=== PATIENT | female | born 1980 | race Two or more races ===

== ENCOUNTER → 2020-09-12 09:38 | Outpatient (BNVA) | payer OTHER, SELFPAY | PROVIDERS: Visit Provider Physician Assistant ==

== ENCOUNTER → 2020-10-03 08:10 | Outpatient (BNVA) | payer OTHER, SELFPAY | PROVIDERS: PCP Internal Medicine; Visit Provider Surgery ==

== ENCOUNTER 2020-10-06 09:13 | Outpatient (REF) | payer OTHER, SELFPAY ==
--- NOTE | ~2020-10-06 | XR_ITS ---
EXAMINATION: XR CHEST CLINICAL INFORMATION: Morbid obesity due to excess calories. COMPARISON: None TECHNIQUE: 2 views of the chest were obtained. FINDINGS: The lungs are well expanded. There is no focal consolidation, edema, or effusion. No pneumothorax. The cardiomediastinal silhouette is within normal limits. No acute osseous abnormality. XR/XR chest 2V IMPRESSION: Clear lungs.
--- NOTE | 2020-10-06 09:48 | ECG_ITS ---
Test Reason : OBESITY Blood Pressure : / mmHG Vent. Rate : 088 BPM Atrial Rate : 088 BPM P-R Int : 180 ms QRS Dur : 078 ms QT Int : 376 ms P-R-T Axes : 067 050 032 degrees QTc Int : 454 ms Normal sinus rhythm Normal ECG No previous ECGs available Referred By: Dorian Pagan Electronically Signed By:Reagan Greenfield
[2020-10-06 09:53] LABS: MANUAL DIFF FLAG NO
[2020-10-06 10:03] LABS: Basophils Absolute Auto 0.1 X10*3/uL (0.0-0.2); Basophils Percent Auto 0.5 % (0-2); Eosinophils Absolute Auto 0.2 X10*3/uL (0.0-0.4); Hematocrit 40.6 % (37-47); Imm Gran Abs Auto 0.08 X10*3/uL (0.00-0.03); Imm Gran Pct Auto 0.9 % (0.0-0.4); Lymphocytes Absolute Auto 2.2 X10*3/uL (1.2-4.9); Lymphocytes Percent Auto 23.5 % (20-40); Mean Corpuscular Hemoglobin 27.5 pg (27.0-33.0); Monocytes Absolute Auto 0.6 X10*3/uL (0.1-1.2); Monocytes Percent Auto 6.3 % (2-11); Neutrophils Absolute Auto 6.3 X10*3/uL (2.0-8.3); Neutrophils Percent Auto 66.8 % (45-73); Platelet Count 280 X10*3/uL (160-400); Red Blood Count 4.72 X10*6/uL (4.20-5.50); Red Cell Distribution Width 13.5 % (11.0-16.0); White Blood Count 9.4 X10*3/uL (4.8-10.8)
[2020-10-06 10:23] LABS: Alanine Aminotransferase 55 U/L (0-31); Albumin Level 4.5 g/dL (3.5-5.0); Alkaline Phosphatase 137 U/L (39-117); Anion Gap 16 (12-20); Aspartate Amino Transferase 67 U/L (5-31); Bilirubin Total 0.5 mg/dL (0.0-1.0); Blood Urea Nitrogen 14 mg/dL (9-16); C Reactive Protein 4.67 mg/dL (< or = 0.50); Calcium 9.3 mg/dL (8.4-10.2); Carbon Dioxide 29 mmol/L (22-29); Chloride 99 mmol/L (96-108); Cholesterol 179 mg/dL; Estimated Glomerular Filt Rate > 60; Glucose Random 134 mg/dL (60-115); HDL Cholesterol 40 mg/dL; LDL Cholesterol Calculated 113 mg/dl; Potassium 4.2 mmol/L (3.3-5.1); Sodium 140 mmol/L (135-145); Total Protein 8.3 g/dL (6.5-8.0); Triglycerides 134 mg/dL
[2020-10-06 10:55] LABS: Estimated Average Glucose 183 mg/dL
[2020-10-06 10:58] LABS: TSH reflex Free T4 1.84 uIU/mL (0.32-4.0); Vitamin D 25-OH Total 26.2 ng/mL (>30)
[2020-10-06 11:23] LABS: Folate > 20.0 ng/mL (> or = 4.0); Vitamin B12 377 pg/mL (200-900)
[2020-10-06 11:29] LABS: Ferritin 147 ng/mL (10-250)
[2020-10-07 07:02] LABS: Insulin Level Total 32.1 uIU/mL
[2020-10-07 18:21] LABS: Calcium (PTHI) 9.3 mg/dL (8.6-10.2); PTHI 38 pg/mL (14-64)
[2020-10-09 02:06] LABS: Zinc 82 mcg/dL (60-130)
[2020-10-10 06:51] LABS: Vitamin B1 8 nmol/L (8-30)
[2020-10-10 12:21] LABS: Vitamin A 55 mcg/dL (38-98)
== END 2020-10-06 09:14 | disposition home or self-care (01) ==
LOC: HO.LAB 09:13
PROVIDERS: Visit Provider Surgery
DX: E66.01 Morbid (severe) obesity due to excess calories (principal); I10 Essential (primary) hypertension; E11.9 Type 2 diabetes mellitus without complications
CPT/HCPCS: 36415; 71046; 80053; 80061; 82306; 82607; 82728; 82746; 83036; 83525; 83970; 84425; 84443; 84590; 84630; 85025; 86140; 93005

== ENCOUNTER 2020-10-07 08:13 | Outpatient (REF) | payer OTHER, SELFPAY ==
[2020-10-08 13:31] LABS: H Pylori Breath Test DETECTED (NOT DETECTED)
== END 2020-10-07 08:14 | disposition home or self-care (01) ==
LOC: HO.LNP 08:13
PROVIDERS: Visit Provider Physician Assistant
DX: E66.01 Morbid (severe) obesity due to excess calories (principal); I10 Essential (primary) hypertension
CPT/HCPCS: 83013; 99211

== ENCOUNTER → 2020-10-17 12:36 | Outpatient (BNVA) | payer OTHER, SELFPAY | PROVIDERS: Visit Provider Physician Assistant ==

== ENCOUNTER 2020-10-19 09:15 | Outpatient (REF) | payer OTHER, SELFPAY ==
--- NOTE | ~2020-10-19 | US_ITS ---
EXAMINATION: US COMPLETE ABDOMEN WITH LIVER ELASTOGRAPHY CLINICAL INFORMATION: Morbid to severe obesity due to excess calories. COMPARISON: None. TECHNIQUE: Real-time imaging of the abdominal viscera. Noninvasive ultrasound liver fibrosis assessment is performed using Kam ElastPQ point quantification shear wave elastography (pSWE) with a C5-2 MHz transducer. Multiple elastography samples are obtained. FINDINGS: PANCREAS: Normal. The visualized pancreatic head and body are normal in appearance. The remainder of the pancreas is obscured from visualization by the overlying bowel gas. ABDOMINAL AORTA: The proximal, middle, and distal aortic segments are normal in caliber. INFERIOR VENA CAVA: Visualized portions are normal. LIVER: The liver demonstrates normal size, contour and increased echogenicity. No focal lesion or intrahepatic biliary duct dilatation. The right lobe measures 19.2 cm in length. The left lobe measures 13.1 cm in length. Portal flow is hepatopedal. Shear wave liver elastography median stiffness is 1.67 m/s (reference: normal median stiffness is 1.3 m/s or less). IQR/median stiffness to assess sampling precision is 0.10 (reference: good quality data set is IQR/median stiffness of 0.15 or less). GALLBLADDER: Normal. The gallbladder is physiologically distended without evidence of stones, sludge, polyps, wall thickening or pericholecystic fluid. COMMON BILE DUCT: Normal in caliber measuring 0.57 cm in diameter. RIGHT KIDNEY: Normal. No hydronephrosis. No renal calculi or focal parenchymal lesions. The kidney measures 11.4 cm in maximum dimension. LEFT KIDNEY: Normal. No hydronephrosis. No renal calculi or focal parenchymal lesions. The kidney measures 10.8 cm in maximum dimension. SPLEEN: Normal. The spleen measures 9.8 cm in maximum dimension. FREE FLUID: None. US/US abdomen comp w elastography IMPRESSION: 1. Hepatic steatosis without focal lesion. Rest of the abdominal ultrasound is unremarkable. 2. Liver elastography: Median stiffness 1.67 m/s. cACLD (ruled out) REFERENCE: Society of Radiologists in Ultrasound Liver Stiffness Thresholds (2019): LIVER STIFFNESS THRESHOLDS: *Liver Stiffness equal or less than 1.3 m/s: High probability of being normal. *Liver Stiffness less than 1.7 m/s: In the absence of other known clinical signs, rules out compensated advanced chronic liver disease. *Liver Stiffness 1.7-2.1 m/s: Suggestive of compensated advanced chronic liver disease but need further test for confirmation. *Liver Stiffness over 2.1 m/s: Rules in compensated advanced chronic liver disease. *Liver Stiffness over 2.4 m/s: Suggestive of clinically significant portal hypertension. QUALITY OF DATA SET: *IQR/Median value equal or less than 0.15 implies a quality data set. *IQR/Median value over 0.15 implies a poor quality data set. SIGNIFICANT CHANGE FROM PRIOR EXAM: Significant change if liver stiffness measurement is 10% or greater from prior exam. OTHER CONSIDERATIONS: The stage of liver fibrosis may be overestimated in the setting of acute hepatitis, liver inflammation, elevated liver function tests, hepatic vascular congestion, obstructive cholestasis, non-fasting state, and infiltrative diseases such as amyloidosis and lymphoma. In some patients with NAFLD, the liver stiffness thresholds for compensated advanced chronic liver disease may be lower. In causes other than viral hepatitis and NAFLD, liver stiffness thresholds are not well established.
--- NOTE | ~2020-10-19 | FL_ITS ---
EXAMINATION: XR GI SERIES CLINICAL INFORMATION: Orbit obesity. COMPARISON: None. TECHNIQUE: Routine upper GI air contrast study was performed. FINDINGS: Falling oral administration of thick barium and effervescent granules in upright view, there is normal propagation of bolus from the oral cavity through the pharynx and esophagus and into the stomach without any evidence of obstruction, narrowing or stricture. The course, caliber and peristalsis of the stomach and the duodenal bulb are normal. There is mild gastroesophageal reflux seen in the supine position. No evidence of hiatal hernia. Incidental note is made of previous cholecystectomy. FLUOROSCOPY TIME: 1.4 minutes. DOSE AREA PRODUCT: 60.201 uGy-m2 (microgray-meter squared). FL/FL upper GI series IMPRESSION: Mild gastroesophageal reflux without hiatal hernia.
== END 2020-10-19 09:16 | disposition home or self-care (01) ==
LOC: HO.US 09:15
PROVIDERS: PCP Internal Medicine; Visit Provider Surgery
DX: Z01.818 Encounter for other preprocedural examination (principal); E66.01 Morbid (severe) obesity due to excess calories; K21.9 Gastro-esophageal reflux disease without esophagitis
CPT/HCPCS: 74240; 76705; 76981

== ENCOUNTER 2020-10-20 12:22 | Outpatient (REF) | payer OTHER, SELFPAY ==
[2020-10-20 13:44] LABS: Iron 41 mcg/dL (30-160); Percent Iron Saturation 9 % (15-50); Total Iron Binding Capacity 444 mcg/dL (228-428); Unsaturated Iron Binding 403 ug/dL
== END 2020-10-20 12:23 | disposition home or self-care (01) ==
LOC: HO.LAB 12:22
PROVIDERS: Visit Provider Surgery
DX: E66.01 Morbid (severe) obesity due to excess calories (principal); I10 Essential (primary) hypertension; E11.9 Type 2 diabetes mellitus without complications
CPT/HCPCS: 36415; 83540

== ENCOUNTER → 2020-10-24 10:59 | Outpatient (BNVA) | payer OTHER, SELFPAY | PROVIDERS: Visit Provider Physician Assistant ==

== ENCOUNTER → 2020-10-26 08:25 | Outpatient (BNVA) | payer OTHER, SELFPAY | PROVIDERS: PCP Nurse Practitioner Family; Visit Provider Surgery ==

== ENCOUNTER → 2020-10-31 08:12 | Outpatient (BNVA) | payer OTHER, SELFPAY | PROVIDERS: Visit Provider Dietitian, Registered | DX: E66.01 Morbid (severe) obesity due to excess calories (principal); Z68.41 Body mass index [BMI] 40.0-44.9, adult | CPT/HCPCS: 97802 ==

== ENCOUNTER → 2020-11-07 11:33 | Outpatient (BNVA) | payer OTHER, SELFPAY | PROVIDERS: Referring Provider Nurse Practitioner Family; Visit Provider Physician Assistant ==

== ENCOUNTER 2020-11-15 08:58 | Outpatient (REF) | payer OTHER, SELFPAY ==
[2020-11-16 14:47] LABS: H Pylori Breath Test NOT DETECTED (NOT DETECTED)
== END 2020-11-15 08:59 | disposition home or self-care (01) ==
LOC: HO.LNP 08:58
PROVIDERS: Referring Provider Nurse Practitioner Family; Visit Provider Surgery
DX: A04.8 Other specified bacterial intestinal infections (principal); E66.01 Morbid (severe) obesity due to excess calories; I10 Essential (primary) hypertension
CPT/HCPCS: 83013; 99211

== ENCOUNTER → 2020-11-18 08:15 | Outpatient (BNVA) | payer OTHER, SELFPAY | PROVIDERS: Visit Provider Surgery | DX: E66.01 Morbid (severe) obesity due to excess calories (principal); Z68.41 Body mass index [BMI] 40.0-44.9, adult | CPT/HCPCS: 97803 ==

== ENCOUNTER → 2020-11-22 11:41 | Outpatient (BNVA) | payer OTHER, SELFPAY | PROVIDERS: PCP Nurse Practitioner Family; Visit Provider Physician Assistant ==

== ENCOUNTER → 2020-11-25 14:40 | Outpatient (BNVA) | payer OTHER, SELFPAY | PROVIDERS: PCP Nurse Practitioner Family; Referring Provider Nurse Practitioner Family; Visit Provider Physician Assistant ==

== ENCOUNTER → 2020-11-29 11:45 | Outpatient (BNVA) | payer OTHER, SELFPAY | PROVIDERS: PCP Nurse Practitioner Family; Visit Provider Physician Assistant ==

== ENCOUNTER → 2020-12-06 10:41 | Outpatient (BNVA) | payer OTHER, SELFPAY | PROVIDERS: PCP Nurse Practitioner Family; Visit Provider Physician Assistant ==

== ENCOUNTER → 2020-12-12 07:48 | Outpatient (BNVA) | payer OTHER, SELFPAY | PROVIDERS: PCP Nurse Practitioner Family; Visit Provider Surgery ==

== ENCOUNTER → 2020-12-20 10:19 | Outpatient (BNVA) | payer OTHER, SELFPAY | PROVIDERS: PCP Nurse Practitioner Family; Visit Provider Physician Assistant ==

== ENCOUNTER → 2020-12-27 12:01 | Outpatient (BNVA) | payer OTHER, SELFPAY | PROVIDERS: PCP Nurse Practitioner Family; Visit Provider Physician Assistant ==

== ENCOUNTER → 2021-01-02 10:35 | Outpatient (BNVA) | payer OTHER, SELFPAY | PROVIDERS: PCP Nurse Practitioner Family; Visit Provider Physician Assistant ==

== ENCOUNTER → 2021-01-11 07:24 | Outpatient (BNVA) | payer OTHER, SELFPAY | PROVIDERS: PCP Nurse Practitioner Family; Visit Provider Surgery ==

== ENCOUNTER → 2021-01-17 10:14 | Outpatient (BNVA) | payer OTHER, SELFPAY | PROVIDERS: PCP Nurse Practitioner Family; Referring Provider Nurse Practitioner Family; Visit Provider Physician Assistant ==

== ENCOUNTER → 2021-01-20 08:56 | Outpatient (BNVA) | payer OTHER, SELFPAY | PROVIDERS: PCP Nurse Practitioner Family; Referring Provider Nurse Practitioner Family; Visit Provider Physician Assistant ==

== ENCOUNTER 2021-01-26 13:01 | Inpatient (IN) | payer MEDICAID, SELFPAY ==
[2021-01-17 10:40] LABS: MANUAL DIFF FLAG NO
[2021-01-17 10:51] LABS: Basophils Percent Auto 0.3 % (0-2); Eosinophils Absolute Auto 0.2 X10*3/uL (0.0-0.4); Hematocrit 37.4 % (37-47); Hemoglobin 11.7 g/dl (12.0-16.0); Imm Gran Abs Auto 0.04 X10*3/uL (0.00-0.03); Imm Gran Pct Auto 0.4 % (0.0-0.4); Lymphocytes Absolute Auto 2.4 X10*3/uL (1.2-4.9); Lymphocytes Percent Auto 23.4 % (20-40); Mean Corpuscular HGB Conc 31.3 g/dl (31.0-35.0); Mean Corpuscular Hemoglobin 26.4 pg (27.0-33.0); Mean Corpuscular Volume 84.4 fL (80-98); Mean Platelet Volume 13.2 fL (9.4-12.3); Monocytes Absolute Auto 0.6 X10*3/uL (0.1-1.2); Monocytes Percent Auto 5.6 % (2-11); Neutrophils Percent Auto 68.3 % (45-73); Platelet Count 252 X10*3/uL (160-400); Red Blood Count 4.43 X10*6/uL (4.20-5.50); Red Cell Distribution Width 13.2 % (11.0-16.0); White Blood Count 10.2 X10*3/uL (4.8-10.8)
[2021-01-17 10:56] LABS: Estimated Average Glucose 114 mg/dL; Hemoglobin A1c % 5.6 %
[2021-01-17 11:01] LABS: INTERNATIONAL NORM RATIO 1.1 (0.9-1.1); Prothrombin Time 12.9 SEC (9.9-13.0)
[2021-01-17 11:04] LABS: Partial Thromboplastin Time 35.4 SEC (24.1-38.0)
[2021-01-17 11:14] LABS: Alanine Aminotransferase 16 U/L (0-31); Albumin Level 4.1 g/dL (3.5-5.0); Alkaline Phosphatase 118 U/L (39-117); Anion Gap 12 (12-20); Aspartate Amino Transferase 14 U/L (5-31); Bilirubin Total 0.4 mg/dL (0.0-1.0); Blood Urea Nitrogen 18 mg/dL (9-16); C Reactive Protein 3.26 mg/dL (< or = 0.50); Calcium 9.3 mg/dL (8.4-10.2); Carbon Dioxide 29 mmol/L (22-29); Chloride 103 mmol/L (96-108); Cholesterol 142 mg/dL; Estimated Glomerular Filt Rate > 60; Glucose Random 96 mg/dL (60-115); HDL Cholesterol 35 mg/dL; LDL Cholesterol Calculated 80 mg/dl; Potassium 4.3 mmol/L (3.3-5.1); Sodium 140 mmol/L (135-145); Total Protein 7.3 g/dL (6.5-8.0); Triglycerides 135 mg/dL
[2021-01-17 11:24] LABS: TSH reflex Free T4 2.37 uIU/mL (0.32-4.0)
[2021-01-17 13:46] VITALS: BMI 37.7
[2021-01-18 11:17] LABS: Insulin Level Total 17.6 uIU/mL
--- NOTE | 2021-01-25 08:46 | P.CONAN_ITS ---
Documented by User: Dinah Wynne 01/25/21 08:47 HPI - Anesthesia Eval Consult details Narrative: 41yo F for Gastrectomy Sleeve, EGD, Poss Diaphragmatic Hernia, Poss Ventral Hernia, Poss open PMFSH Active Problems Active Problems: All Active Problems (Updated 01/17/21 @ 13:48 by Richelle Delaney) Vitamin D deficiency (Acute) Vitamin B12 deficiency (Acute) H pylori ulcer (Acute) Adjustment disorder, unspecified (Acute) Obesity (Acute) BMI 38.0-38.9,adult (Acute) BMI 37.0-37.9, adult (Acute) Lower extremity edema (Acute) Back pain (Acute) Insomnia (Acute) Non-insulin dependent diabetes mellitus (Acute) Hypertension (Acute) Morbid obesity (Acute) Past Medical History Medical History (Updated 01/17/21 @ 13:48 by Richelle Delaney) Back pain COVID-19 vaccine administered Hypertension Insomnia Lower extremity edema Morbid obesity Non-insulin dependent diabetes mellitus Family History Family History Mother Hypertension Diabetes Father Diabetes Hypertension Gout attack Brother Gout attack Hypertension Son No problems noted. Surgical History Surgical History History of carpal tunnel release History of tonsillectomy and adenoidectomy Hx of cholecystectomy Social History Social History Household Members Other:: father Are you a primary care management specialist to a significant other at home: No Do you presently have visiting nurse or other home services: No Alcohol intake: former Patient Tobacco Use Status: Never used Tobacco Meds Allergies Allergy/AdvReac Type Severity Reaction Status Date / Time No Known Allergies Allergy Verified 01/26/21 13:42 Home Medications Medication Instructions Recorded Confirmed Last Taken Type sitagliptin 50 mg-metformin 1,000 1 tab PO BID 09/12/20 01/17/21 Unknown History mg tablet trazodone 50 mg tablet 25 mg PO DAILY PRN 09/12/20 01/17/21 Unknown History valsartan 80 mg tablet 80 mg PO DAILY 09/12/20 01/17/21 Unknown History Exam Exam Date and Time: January 25, 2021 0846 Height,Weight and Vital Signs: Height 5 ft 4.5 in Weight 101.151 kg Pertinent Lab Results Pertinent Lab Results: Laboratory Tests 01/17/21 01/17/21 01/17/21 10:00 10:00 10:00 WBC 10.2 RBC 4.43 Hgb 11.7 L Hct 37.4 MCV 84.4 MCH 26.4 L MCHC 31.3 RDW 13.2 Plt Count 252 MPV 13.2 H Immature Gran % (Auto) 0.4 Neut % (Auto) 68.3 Lymph % (Auto) 23.4 Mclean % (Auto) 5.6 Eos % (Auto) 2.0 Baso % (Auto) 0.3 Lymph # (Auto) 2.4 Mclean # (Auto) 0.6 Eos # (Auto) 0.2 Baso # (Auto) 0.0 Abs Immat Gran (auto) 0.04 H Absolute Neuts (auto) 7.0 Absolute Nucleated RBC 0.000 Nucleated RBC % (auto) 0.0 PT 12.9 INR 1.1 APTT 35.4 Sodium 140 Potassium 4.3 Chloride 103 Carbon Dioxide 29 Anion Gap 12 BUN 18 H Creatinine 0.79 Estim Creat Clear Calc TNP Estimated GFR > 60 Random Glucose 96 Estimat Average Glucose Hemoglobin A1c % Total Insulin Calcium 9.3 Total Bilirubin 0.4 AST 14 D ALT 16 Alkaline Phosphatase 118 H C-Reactive Protein 3.26 H Total Protein 7.3 Albumin 4.1 Triglycerides 135 Cholesterol 142 D LDL Cholesterol, Calc 80 HDL Cholesterol 35 TSH 2.37 Blood Type Antibody Screen 01/17/21 01/17/21 01/17/21 10:00 10:00 10:00 WBC RBC Hgb Hct MCV MCH MCHC RDW Plt Count MPV Immature Gran % (Auto) Neut % (Auto) Lymph % (Auto) Mclean % (Auto) Eos % (Auto) Baso % (Auto) Lymph # (Auto) Mclean # (Auto) Eos # (Auto) Baso # (Auto) Abs Immat Gran (auto) Absolute Neuts (auto) Absolute Nucleated RBC Nucleated RBC % (auto) PT INR APTT Sodium Potassium Chloride Carbon Dioxide Anion Gap BUN Creatinine Estim Creat Clear Calc Estimated GFR Random Glucose Estimat Average Glucose 114 Hemoglobin A1c % 5.6 Total Insulin 17.6 Calcium Total Bilirubin AST ALT Alkaline Phosphatase C-Reactive Protein Total Protein Albumin Triglycerides Cholesterol LDL Cholesterol, Calc HDL Cholesterol TSH Blood Type B Positive Antibody Screen NEGATIVE Narrative Narrative: EKG 10/2020 Vent. Rate : 088 BPM Atrial Rate : 088 BPM P-R Int : 180 ms QRS Dur : 078 ms QT Int : 376 ms P-R-T Axes : 067 050 032 degrees QTc Int : 454 ms Normal sinus rhythm Normal ECG No previous ECGs available Assessment and Plan Assessment Anesthesia Assessment: Chart Reviewed Documented by User: Cookie Anti 01/26/21 13:56 PMF Past Medical History Medical History (Updated 01/17/21 @ 13:48 by Richelle Delaney) Back pain COVID-19 vaccine administered Hypertension Insomnia Lower extremity edema Morbid obesity Non-insulin dependent diabetes mellitus Family History Family History Mother Hypertension Diabetes Father Diabetes Hypertension Gout attack Brother Gout attack Hypertension Son No problems noted. Surgical History Surgical History History of carpal tunnel release History of tonsillectomy and adenoidectomy Hx of cholecystectomy Social History Social History Household Members Other:: father Are you a primary care management specialist to a significant other at home: No Do you presently have visiting nurse or other home services: No Alcohol intake: former Patient Tobacco Use Status: Never used Tobacco Meds Allergies Allergy/AdvReac Type Severity Reaction Status Date / Time No Known Allergies Allergy Verified 01/26/21 13:42 Home Medications Medication Instructions Recorded Confirmed Last Taken Type sitagliptin 50 mg-metformin 1,000 1 tab PO BID 09/12/20 01/17/21 Unknown History mg tablet trazodone 50 mg tablet 25 mg PO DAILY PRN 09/12/20 01/17/21 Unknown History valsartan 80 mg tablet 80 mg PO DAILY 09/12/20 01/17/21 Unknown History Exam Airway Mallampati Class: II TM Dist: >3cm Neck ROM: Full Loose/Missing/Broken Teeth: No Heart: RRR Lungs: CTA Assessment and Plan Assessment Anesthesia Assessment: Anesthesia Plan Discussed and Chart Reviewed Final Anesthetic Review NPO: Yes ASA Class: II Final Preanesthetic Review: Meds/Allgs Chart Reviewed, Consent Obtained/Reviewed and Anes Risks/Benef Reviewed Patient Risk: Low Procedure Risk: Intermediate Anesthetic Plan Anesthetic Plan: GA Disposition: Standard PACU
--- NOTE | 2021-01-25 19:19 | MHC.SHP ---
Pre-Procedural Eval Section A Date of Service: 01/25/21 The patient is an INPATIENT: Yes The History & Physical has been completed within 30 days and I have reviewed it.: Yes Section B Chief Complaint: Obesity Details of Present Illness: Obesity Relevant Family History (Specify if Yes): No Relevant Social History: None Present Medications: see Short Stay Collaborative assessment Medical History: No relevant PMH History of Previous Operations: No relevant previous surgery Allergies: Allergies Allergy/AdvReac Type Severity Reaction Status Date / Time No Known Allergies Allergy Verified 01/11/21 11:16 Review of Systems Sugical H&P ROS: Negative: Constitution, Cardiovascular, Respiratory, Neurological, Psychiatric, Hem-Onc, Allergic/Immunologic, Gastrointestinal, Genitourinary, Musculoskeletal, Integumentary, Endocrine and Eyes/Ears/Nose/Throat Exam Surgical H&P Exam: Normal: HEENT, Normal: Heart, Normal: Lungs, Normal: Extremities, Normal: Abdomen, Normal: Skin and Normal: Neurological Plan Diagnosis/Plan: Unchanged I have reviewed the history and physical and performed a pertinent physical examination on my patient. No changes have occurred unless specified.
[2021-01-26] VITALS (13 sets, daily range): BP systolic 134–163; BP diastolic 81–95; PULSE 62–83; RESP 14–17; TEMP 35.9–36.5; O2SAT 96–100
[2021-01-26 13:42] LABS: UPreg QC Valid YES; Urine Pregnancy NEGATIVE (NEGATIVE)
[2021-01-26 13:51] LABS: COVID-19 Test Negative (Negative)
[2021-01-26] MEDS: Lactated Ringers 1,000 ML 999 ML IV (14:09)
[2021-01-26] MEDS: Lactated Ringers 1,000 ML 100 ML IVCONT (14:10)
--- NOTE | 2021-01-26 14:11 | PC.NURSE ---
Commercial Sales Consultant at bedside during intake. Patient states that she only drank half of her bowel prep (1/2 of the bottle of miralax). She only had one bowel movement since she started her prep and it was brown diarrhea. Dr. Pratt aware. Dr. Pagan aware. No new orders. Okay to proceed with surgery.
--- NOTE | 2021-01-26 15:23 | PM.OP ---
Brief Operative Note Date of Service: 01/26/21 Pre-op diagnosis: Severe obesity with comorbidities (see below) Post-op diagnosis: same Procedure: INITIAL PATIENT BMI ON PRESENTATION AT OUR OFFICE: 44.4 kg/m2 LAST BMI BEFORE SURGERY:37.8 kg/m2 COMORBIDITIES: Hypertension, non-insulin dependent diabetes, back pain, insomnia, GERD, liver steatosis, lower extremity edema The patient participated in an intensive weekly lifestyle intervention and exercise program during which the patient has lost between the initial office visit and the last preoperative visit 43.2lbs, or 16.2% of initial actual body weight. The patient met the BMI-criteria for bariatric surgery based on the BMI on initial presentation. The patient should not be penalized for achieving such weight loss because it is not sustainable long-term without surgical intervention and it was achieved in preparation for bariatric surgery under my direction and based on my published research ([email or web address] and [email or web address]) that a 10% preoperative weight loss improves long-term weight loss after surgery and reduces perioperative complications. Insurance carriers such as [facility] have endorsed my recommendations and have included in their policies criteria to include a 10% preoperative weight loss requirement. PROCEDURE: Esophago-gastroscopy, laparoscopic sleeve gastrectomy and laparoscopic gastropexy INDICATIONS: This is a 41 year-old female who was electively scheduled for laparoscopic, possibly open sleeve gastrectomy. The risks and complications of the procedure were discussed with the patient in advance, particularly the possibility of ; pulmonary embolism; staple line leak; bleeding; GERD; cardiac, pulmonary, or renal complications; as well as long-term problems such as insufficient weight loss, vitamin deficiency, strictures, or ulcers. The patient understood all the risks, and was in agreement to proceed with surgery. DESCRIPTION OF PROCEDURE: After informed consent was obtained from the patient, the patient was given preoperative antibiotics, and was transferred to the operating room. After successful induction of general anesthesia, pneumatic compressive devices were placed on both lower extremities. An upper endoscopy was performed next. The oropharynx and esophagus appeared to be within normal limits. There was a diaphragmatic hernia present of moderate size consistent with the findings of the preoperative upper GI. The stomach was entered. Then after all fluid and air were suctioned and the stomach was fully decompressed, the scope was withdrawn and secured in the mid esophagus. The patient was then prepped and draped in the usual sterile manner, and abdominal access was established at the right upper quadrant with the Rona technique. A 12 mm blunt port was inserted, and the abdomen was insufflated with CO2 to a pressure of 15 mmHg. Under direct visualization, additional ports were placed, specifically two 5 mm Versi-step ports to the left upper quadrant, and a 5 mm Versi-Step port to the right upper quadrant. 1% lidocaine plain was used to infiltrate all port sites as well as all fascia defects. Using the EndoClose suture passer device, I placed a #1 Polysorb tie across the falciform ligament in order to retract it up against the abdominal wall and prevent injury of the ligament with our instruments during the procedure. Following that, the patient was placed in a steep reverse Trendelenburg position. An additional 5 mm port was placed to the right flank for the Mediflex retractor that was used to retract the left lobe of the liver. The gastro-esophageal fat pad was opened with the ultrasonic device (Thunderbeat, Olympus) and the anterior esophagus and hiatus were exposed. The angle of His was opened with the ultrasonic device the fundus of the stomach from any diaphragmatic and splenic attachments. I then opened the gastrocolic ligament between the transverse colon and the greater curvature of the stomach with the ultrasonic device to enter the lesser sac and facilitate the ligation of the short gastric vessels. I started at a mid-point along the greater curvature and using the Thunderbeat, all short gastric vessels were divided all the way to the angle of His until the left massiel was completely dissected at its entirety. I then divided the gastro-colic ligament distally to a distance of about 3-4 cm proximal to the esophagus. The stomach was then divided transversely with one Endo ROMAINE-45 purple and four ROMAINE-60 articulating orange loads using the AEON stapler and loads. Every effort was made that the gastric sleeve had a tubular shape and an even caliber throughout. Once the sleeve resection was completed, the staple line of the gastric sleeve was reinforced with Hemoclips. The resected stomach was retrieved without difficulty from the Rona port. A gastropexy was then performed in order to prevent postoperative GERD and partial gastric volvulus. Several interrupted 2.0 Surgidac sutures were placed between the sleeve's staple line and the previously divided greater omentum and gastro-colic ligament using the Endo-Stitch device. An upper endoscopy was performed. There was no narrowing at the GE junction. The scope was easily advanced all the way to the pylorus which was clearly visualized. There was no narrowing anywhere and the sleeve's caliber was even throughout. The sleeve's staple line was inspected and there was no evidence of ischemia, bleeding or dehiscence. At that point the gastroscope was withdrawn from the patient?s mouth while we were decompressing the bowel and the stomach from any remaining air. I looked into the lesser sac to see how the sleeve was situating and it was situating well. There was no bleeding from the staple line, spleen, or short gastric vessels. The Mediflex retractor was removed, and the undersurface of the liver was inspected and there was no bleeding. The patient was placed in supine position. I closed the fascial defect of the 12 mm port site with a figure of eight #1 Polysorb suture. Then 100 cc 0.25 % Marcaine plain with 10 mg of Dexamethasone were used to infiltrate the fascial closure as well as all skin incisions. At this point, the abdomen was deflated, all ports were removed under direct vision, and no bleeding was noted from any of the port sites. The skin incisions were irrigated with saline and were closed with 4-0 absorbable monofilament sutures. Steri-Strips and OpSites were used to cover all incisions. The patient was extubated and was transferred in stable condition to the recovery room for further care. I was present and performed all donato parts of the procedure. Jonas Encinas was the assistant director of admissions. There were no residents to assist with this case. Dylon Pagan MD, PhD, FACS Surgeon: Dorian Pagan MD Anesthesia: GETA, local and other (TAP block) Was an Management Trainer used for this Procedure?: No Management Trainer: Joan Encinas Estimated blood loss (mL): 5 IV fluids (mL): 2,400 Urine output (mL): 0 (No Meredith to record) Pathology: other (Stomach) Condition: stable Disposition: PACU
--- NOTE | 2021-01-26 15:27 | PM.PNGS ---
Subjective Subjective Date of Service: 01/27/21 Interval history: Patient has mild incisional pain but was able to ambulate and use the incentive spirometer. Is tolerating phase 1 bariatric diet. Physical Exam Vital Signs: Vital Signs: Last Vital Signs Temp 97.4 F 01/26/21 13:53 Pulse 62 01/26/21 13:53 Resp 16 01/26/21 13:53 BP 134/81 01/26/21 13:53 Pulse Ox 97 01/26/21 13:53 Body Mass Index 37.7 GI: Inspection: Yes normal to inspection, Yes incision (clean, dry and intact) and Yes obesity Extrem: Right lower extremity: normal to inspection (no calf tenderness) Left lower extremity: normal to inspection (no calf tenderness) Progress Note: A&P Assessment and plan (1) Obesity: Status: Acute Assessment and Plan: s/p laparoscopic sleeve gastrectomy and gastropexy Doing well Check am labs. If OK, will discharge home. (2) BMI 37.0-37.9, adult: Status: Acute (3) Non-insulin dependent diabetes mellitus: Status: Acute (4) Hypertension: Status: Acute (5) Insomnia: Status: Acute (6) Back pain: Status: Acute (7) Lower extremity edema: Status: Acute Fall Risk Details Current Medications: Current Medications Generic Name Dose Route Start Last Admin Trade Name Freq PRN Reason Stop Dose Admin Albuterol Sulfate 2.5 mg 01/26/21 13:56 Albuterol Sulfate (0.083%) 2.5 Mg/3 Ml Vial.Neb INHALE ONCE PRN Wheezing Fentanyl 50 mcg 01/26/21 13:56 Fentanyl Citrate/Pf 100 Mcg/2 Ml Vial IVPUSH Q5M PRN Pain, Severe (Pain Scale 7-10) Fentanyl 25 mcg 01/26/21 13:56 Fentanyl Citrate/Pf 100 Mcg/2 Ml Vial IVPUSH Q5M PRN Pain, Moderate (Pain Scale 4-6 Hydromorphone HCl 0.5 mg 01/26/21 13:56 Hydromorphone Hcl 0.5 Mg/0.5 Ml Syringe IVPUSH Q5M PRN Pain, Severe (Pain Scale 7-10) Hydromorphone HCl 0.25 mg 01/26/21 13:56 Hydromorphone Hcl 0.5 Mg/0.5 Ml Syringe IVPUSH Q5M PRN Pain, Severe (Pain Scale 7-10) Lactated Ringer's 1,000 mls @ 100 mls/hr 01/26/21 13:15 01/26/21 14:10 Lr IVCONT 100 mls/hr .Q10H LADY Administration Promethazine HCl 12.5 mg/ 50.5 mls @ 202 mls/hr 01/26/21 13:56 Sodium Chloride IV ONCE PRN Nausea and Vomiting Ondansetron HCl 4 mg 01/26/21 13:56 Ondansetron Hcl 4 Mg/2 Ml Vial IVPUSH ONCE PRN Nausea and Vomiting Oxycodone HCl 10 mg 01/26/21 13:56 Oxycodone Hcl Immed Release 5 Mg Tablet PO ONCE PRN Pain, Severe (Pain Scale 7-10) Oxycodone HCl 5 mg 01/26/21 13:56 Oxycodone Hcl Immed Release 5 Mg Tablet PO ONCE PRN Pain, Severe (Pain Scale 7-10) Time Spent With Patient Time: Total time spent is greater than 50% in coordination of care (as documented) at patient's floor/unit and/or counseling patient: Time with patient: less than 15 minutes Procedures Date of Service Date of Service: 01/27/21 Quality Stroke Does the patient have a stroke diagnosis?: No VTE Prior VTE?: No VTE Risk Level:: Surgical - moderate VTE Device Contraindication: N/A - Device Ordered VTE Drug Contraindication: Treatment Not Indicated
--- NOTE | 2021-01-26 17:39 | P.DS_ITS ---
DS: Providers Provider Date of Service: 01/27/21 Primary care physician: Marylou Martinez MD DS: Diagnosis Discharge Diagnosis (1) Obesity: Status: Acute (2) BMI 37.0-37.9, adult: Status: Acute (3) Non-insulin dependent diabetes mellitus: Status: Acute (4) Hypertension: Status: Acute (5) Insomnia: Status: Acute (6) Back pain: Status: Acute (7) Lower extremity edema: Status: Acute DS: Medications Discharge Medications Home Medications: Home Medications Medication Instructions Recorded Confirmed sitagliptin 50 mg-metformin 1,000 1 tab PO BID 09/12/20 01/26/21 mg tablet trazodone 50 mg tablet 25 mg PO DAILY PRN 09/12/20 01/17/21 valsartan 80 mg tablet 80 mg PO DAILY 09/12/20 01/17/21 Previous Rx's Medication Instructions Recorded ondansetron HCl 4 mg tablet 4 mg PO Q6H #20 tab 01/11/21 pantoprazole 40 mg tablet,delayed 40 mg PO DAILY #30 tab 01/11/21 release sucralfate 100 mg/mL oral 10 ml PO BID #400 ml 01/11/21 suspension DS: Summary Time Spent with Patient Time attestation: ADMITTING DIAGNOSIS: morbid obesity, NIDDM, HTN, insomnia DISCHARGE DIAGNOSIS: same, s/p laparoscopic sleeve gastrectomy and repair diaphragmatic hernia PAST SURGICAL HISTORY: lap chas, T&A, carpal tunnel release PROCEDURE: upper endoscopy, laparoscopic sleeve gastrectomy and gastropexy DISCHARGE SUMMARY: History of Present Illness: The patient is a 41 year-old woman with a BMI of 44.3 kg/m2 and associated co- morbidities as described above. The patient had extensive work-up,lost 44.2 lbs preoperatively and was electively scheduled for laparoscopic, possible open sleeve gastrectomy and gastropexy. Risks and complications of the surgery were discussed with the patient in advance, particularly the possibility of , pulmonary embolism, anastomotic leak, bleeding, bowel injury, GERD, cardiac, renal or pulmonary complications. The patient understood all the risks and was in agreement with the surgical plan. Hospital Course: The patient underwent an uneventful laparoscopic sleeve gastrectomy with gastropexy on the day of admission. Postoperatively, the patient was transferred to the surgical floor. The patient was on IV Acetaminophen and IV dilaudid for pain control. Patient was started on bariatric phase 1 diet POD #0. On postoperative day one, the patient was feeling well without nausea, vomiting, fevers, or tachycardia. The patient had some mild incisional pain. The abdomen was soft. On the morning of postoperative day one, the patient was continued on 1 ounce of water or ice every half hour. During the first day, the patient did fairly well, having some incisional pain, but able to ambulate adequately and to tolerate liquids well. Since the patient is doing well, we decided that the patient was ready to be discharged. The patient was given instructions to follow-up with me next week and to call my office for any fever over 101, persistent abdominal pain, nausea, vomiting, GERD, symptoms of DVT such as calf tenderness, or leg swelling, or pulmonary embolism such as chest pain or shortness of breath. The patient was also instructed to drink 40-60 ounces of liquids per day using the 1-ounce cups. The patient was given prescription for Tylenol for pain, Zofran prn for nausea, and pantoprazole and carafate. The patient was encouraged to ambulate and use the incentive spirometer. The patient was allowed to shower, but no baths, and encouraged to stay active at home. All of these instructions were given to the patient personally. All questions were answered and the patient understood all instructions, the instructions were also given to the patient in print. Total time spent providing and/or coordinating discharge services: 15 Discharge coordination time: Less than 30 minutes Quality: Stroke Does the patient have a stroke diagnosis?: No Physical Exam Vital Signs: Vital Signs: Last Vital Signs Temp 96.8 F 01/26/21 17:30 Pulse 76 01/26/21 17:35 Resp 16 01/26/21 17:35 BP 153/89 H 01/26/21 17:35 Pulse Ox 100 01/26/21 17:35 Body Mass Index 37.7 DS: Data Data Completed and Pending Pending studies at discharge: Pending at discharge 01/26/21 17:07 Surgical [PTH] Routine Labs on day of discharge: Laboratory Results - last 24 hr 01/26/21 01/26/21 13:20 13:20 Urine Test NEGATIVE COVID-19 ([facility]IDE) Negative COVID-19 Clin Com See Note Discharge Plan Discharge Patient Disposition: Home, Self-Care Discharge Diagnosis: Severe obesity and comorbidities Referrals: Marylou Martinez MD [Primary Care Provider] - 1 Week Discharge Medications: Continued valsartan 80 mg tablet 80 mg PO DAILY RF: 0 trazodone 50 mg tablet 25 mg PO DAILY PRN (Reason: Insomnia) RF: 0 pantoprazole 40 mg tablet,delayed release (DR/EC) 40 mg PO DAILY Qty: 30 RF: 2 sucralfate 100 mg/mL suspension 10 ml PO BID Qty: 400 RF: 2 ondansetron HCl [Zofran] 4 mg tablet 4 mg PO Q6H Qty: 20 RF: 0 Held Janumet 50-1,000 mg tablet 1 tab PO BID RF: 0 Hold Instructions: Discuss with Dr Pagan before restarting Discontinued mecobalamin (vitamin B12) 1,000 mcg tablet,disintegrating 1,000 mcg sublingual DAILY Qty: 30 RF: 2 Discharge Orders: Discharge Order (Routine); Ordered 01/27/21 Ordered By: Dorian Pagan Activity on Discharge: As tolerated Activity Restrictions/Additional Instructions: No tub baths, sex or returning to work until discussed at first post op appointment. No exercise, alcohol, tobacco or illegal drug use. Continue to use incentive spirometer hourly while awake. Walk in home for 5- 10 minutes every 2 hours during the first week. Continue phase 1 diet today and start phase 2 diet tomorrow morning. Follow all instructions in the bariatric handbook and call with any questions. The patient's medical history has been reviewed and they are considered low risk for post op DVT and therefore DVT prophylaxis is not considered necessary. Travel after surgery was reviewed. The patient has not disclosed any travel plans during the first 30 days after surgery and they have been advised that within the first 30 days after surgery any bus, plane, train or car travel over 2 hours in duration is contraindicated due to the possibility of developing blood clots from immobility. Any travel, needs to include periods of ambulation of 10 minutes in duration every 2 hours. The patient was instructed to discuss any plans for travel during this period with their bariatric surgeon. Care Plan Goals: weight loss Health Concerns: obesity Plan of Treatment: LSG Assessment: stable POD #1 Discharge Date/Time: 01/27/21 10:15
[2021-01-26] MEDS: Lactated Ringers 1,000 ML 125 ML IVCONT (17:59)
[2021-01-26 18:16] LABS: Hematocrit 38.2 % (37-47)
[2021-01-26 18:18] LABS: Hemoglobin 11.7 g/dl (12.0-16.0)
[2021-01-26 18:38] LABS: Anion Gap 14 (12-20); Blood Urea Nitrogen 10 mg/dL (9-16); Calcium 8.9 mg/dL (8.4-10.2); Carbon Dioxide 26 mmol/L (22-29); Chloride 104 mmol/L (96-108); Creatinine Clr Calc Pharmacy 97.3; Estimated Glomerular Filt Rate > 60; Glucose Random 106 mg/dL (60-115); Potassium 4.3 mmol/L (3.3-5.1); Sodium 140 mmol/L (135-145)
[2021-01-26] MEDS: Famotidine/PF 20 MG/2 ML VIAL IVPUSH (20:57)
[2021-01-26] MEDS: 0.9 % Sodium Chloride Flush 3 ML SYRINGE IVFLUSH (20:57)
[2021-01-26] MEDS: ondansetron HCL 4 MG/2 ML VIAL IVPUSH (20:57)
[2021-01-27] VITALS: BP 130/81; PULSE 60; RESP 16; TEMP 36.4; O2SAT 96
[2021-01-27] MEDS: Lactated Ringers 1,000 ML 125 ML IVCONT (01:56)
[2021-01-27 03:49] VITALS: BP 130/77; PULSE 62; RESP 16; TEMP 36.6; O2SAT 95
[2021-01-27] MEDS: ondansetron HCL 4 MG/2 ML VIAL IVPUSH (04:33)
[2021-01-27 07:21] LABS: MANUAL DIFF FLAG NO
[2021-01-27 07:31] LABS: Basophils Percent Auto 0.1 % (0-2); Hematocrit 35.5 % (37-47); Hemoglobin 11.3 g/dl (12.0-16.0); Imm Gran Abs Auto 0.06 X10*3/uL (0.00-0.03); Imm Gran Pct Auto 0.6 % (0.0-0.4); Lymphocytes Absolute Auto 1.2 X10*3/uL (1.2-4.9); Lymphocytes Percent Auto 10.6 % (20-40); Mean Corpuscular HGB Conc 31.8 g/dl (31.0-35.0); Mean Corpuscular Hemoglobin 26.4 pg (27.0-33.0); Mean Corpuscular Volume 82.9 fL (80-98); Monocytes Absolute Auto 0.4 X10*3/uL (0.1-1.2); Monocytes Percent Auto 3.5 % (2-11); Neutrophils Absolute Auto 9.3 X10*3/uL (2.0-8.3); Neutrophils Percent Auto 85.2 % (45-73); Red Blood Count 4.28 X10*6/uL (4.20-5.50); Red Cell Distribution Width 13.8 % (11.0-16.0); White Blood Count 10.9 X10*3/uL (4.8-10.8)
[2021-01-27 07:47] VITALS: BP 127/69; PULSE 58; RESP 18; TEMP 36.4; O2SAT 92
[2021-01-27 07:50] LABS: Platelet Count 194 X10*3/uL (160-400)
[2021-01-27 07:52] VITALS: BP 127/69; PULSE 58
[2021-01-27] MEDS: Valsartan 80 MG TABLET PO (07:52)
[2021-01-27] MEDS: Famotidine/PF 20 MG/2 ML VIAL IVPUSH (07:52)
[2021-01-27] MEDS: 0.9 % Sodium Chloride Flush 3 ML SYRINGE IVFLUSH (07:52)
[2021-01-27 08:05] LABS: Anion Gap 15 (12-20); Blood Urea Nitrogen 10 mg/dL (9-16); Calcium 8.7 mg/dL (8.4-10.2); Carbon Dioxide 25 mmol/L (22-29); Chloride 103 mmol/L (96-108); Creatinine Clr Calc Pharmacy 114.2; Estimated Glomerular Filt Rate > 60; Glucose Random 106 mg/dL (60-115); Potassium 4.3 mmol/L (3.3-5.1); Sodium 139 mmol/L (135-145)
[2021-01-27 08:49] LABS: Glucose, Whole Blood 85 mg/dL (60-115)
--- NOTE | 2021-01-27 09:11 | MHC.CM.PN ---
pt dcd home no servceis ordered by
--- NOTE | 2021-01-27 10:33 | HO.POSTANES ---
Post Anesthesia Evaluation Post Anesthesia Evaluation Vital Signs: Vital Signs Temp Pulse Resp BP Pulse Ox 01/27/21 07:52 58 127/69 01/27/21 07:47 97.6 F 58 18 127/69 92 01/27/21 03:49 97.8 F 62 16 130/77 95 01/27/21 00:00 97.5 F 60 16 130/81 96 Anesthesia: General Endotracheal-GETA Comments: unable to reach by phone
--- NOTE | 2021-01-27 11:16 | MHC.CM.PN ---
pt is indepdent cm intervention is not felt indicated
== END 2021-01-27 10:15 | disposition home or self-care (01) | DRG 403 ==
LOC: HO.SSS 17:44 → HO.S3 17:45
PROVIDERS: Nurse Practitioner; Physician Assistant; Admitting Provider Surgery; PCP Internal Medicine; Visit Provider Surgery
PROC: 0DB64Z3 Excision of Stomach, Percutaneous Endoscopic Approach, Vertical (ICD-10-PCS; CPT 43845; principal; 2021-01-26 15:30)
DX: E66.01 Morbid (severe) obesity due to excess calories (principal); K76.0 Fatty (change of) liver, not elsewhere classified; E11.9 Type 2 diabetes mellitus without complications; I10 Essential (primary) hypertension; R60.0 Localized edema; M54.9 Dorsalgia, unspecified; G47.00 Insomnia, unspecified; K21.9 Gastro-esophageal reflux disease without esophagitis; Z68.37 Body mass index [BMI] 37.0-37.9, adult; Z20.822 Contact with and (suspected) exposure to COVID-19; Z79.899 Other long term (current) drug therapy
CPT/HCPCS: 36415; 80048; 80053; 80061; 81025; 82947; 83036; 83525; 84443; 85014; 85018; 85025; 85610; 85730; 86140; 86850; 86900; 86901; 87635; 88307; 88342; 99024; A4649; J0131; J0690; J1100; J1170; J2250; J2405; J3010

== ENCOUNTER → 2021-01-30 08:13 | Outpatient (BNVA) | payer OTHER, SELFPAY | PROVIDERS: PCP Nurse Practitioner Family; Visit Provider Surgery | DX: E66.9 Obesity, unspecified (principal); Z68.35 Body mass index [BMI] 35.0-35.9, adult | CPT/HCPCS: 99212 ==

== ENCOUNTER → 2021-02-07 11:55 | Outpatient (BNVA) | payer OTHER, SELFPAY | PROVIDERS: PCP Nurse Practitioner Family; Visit Provider Physician Assistant ==

== ENCOUNTER → 2021-02-16 10:12 | Outpatient (BNVA) | payer OTHER, SELFPAY | PROVIDERS: PCP Nurse Practitioner Family; Referring Provider Nurse Practitioner Family; Visit Provider Physician Assistant ==

== ENCOUNTER → 2021-02-21 13:01 | Outpatient (BNVA) | payer OTHER, SELFPAY | PROVIDERS: PCP Nurse Practitioner Family; Referring Provider Nurse Practitioner Family; Visit Provider Physician Assistant ==

== ENCOUNTER → 2021-03-01 10:47 | Outpatient (BNVA) | payer OTHER, SELFPAY | PROVIDERS: PCP Nurse Practitioner Family; Visit Provider Physician Assistant ==

== ENCOUNTER → 2021-03-10 07:32 | Outpatient (BNVA) | payer OTHER, SELFPAY | PROVIDERS: PCP Nurse Practitioner Family; Visit Provider Surgery ==

== ENCOUNTER → 2021-03-15 10:18 | Outpatient (BNVA) | payer OTHER, SELFPAY | PROVIDERS: PCP Nurse Practitioner Family; Visit Provider Physician Assistant ==

== ENCOUNTER → 2021-03-17 07:11 | Outpatient (BNVA) | payer OTHER, SELFPAY | PROVIDERS: PCP Nurse Practitioner Family; Visit Provider Surgery | DX: E66.9 Obesity, unspecified (principal); Z68.32 Body mass index [BMI] 32.0-32.9, adult | CPT/HCPCS: 99212 ==

== ENCOUNTER → 2021-03-29 11:33 | Outpatient (BNVA) | payer OTHER, SELFPAY | PROVIDERS: PCP Nurse Practitioner Family; Visit Provider Physician Assistant ==

== ENCOUNTER → 2021-04-18 14:00 | Outpatient (BNVA) | payer OTHER, SELFPAY | PROVIDERS: PCP Nurse Practitioner Family; Referring Provider Nurse Practitioner Family; Visit Provider Physician Assistant Surgical ==

== ENCOUNTER → 2021-04-19 08:05 | Outpatient (BNVA) | payer OTHER, SELFPAY | PROVIDERS: PCP Nurse Practitioner Family; Visit Provider Surgery | DX: E66.01 Morbid (severe) obesity due to excess calories (principal); Z68.30 Body mass index [BMI] 30.0-30.9, adult | CPT/HCPCS: 99212 ==

== ENCOUNTER → 2021-05-09 11:35 | Outpatient (BNVA) | payer OTHER, SELFPAY | PROVIDERS: PCP Nurse Practitioner Family; Referring Provider Nurse Practitioner Family; Visit Provider Physician Assistant Surgical ==

== ENCOUNTER → 2021-05-23 11:01 | Outpatient (BNVA) | payer OTHER, SELFPAY | PROVIDERS: PCP Nurse Practitioner Family; Visit Provider Physician Assistant ==

== ENCOUNTER → 2022-01-26 15:24 | Outpatient (BNVA) | payer OTHER, SELFPAY | PROVIDERS: PCP Nurse Practitioner Family; Visit Provider Physician Assistant Surgical | DX: E66.9 Obesity, unspecified (principal); Z98.84 Bariatric surgery status; Z68.31 Body mass index [BMI] 31.0-31.9, adult | CPT/HCPCS: 99212 ==

== ENCOUNTER 2022-01-29 08:23 | Outpatient (REF) | payer OTHER, SELFPAY ==
[2022-01-29 08:55] LABS: MANUAL DIFF FLAG NO
[2022-01-29 09:23] LABS: Basophils Percent Auto 0.5 % (0-2); Eosinophils Absolute Auto 0.2 X10*3/uL (0.0-0.4); Eosinophils Percent Auto 2.5 % (0-4); Hematocrit 40.7 % (37.0-47.0); Hemoglobin 13.6 g/dl (12.0-16.0); Imm Gran Abs Auto 0.03 X10*3/uL (0.00-0.03); Imm Gran Pct Auto 0.4 % (0.0-0.4); Lymphocytes Absolute Auto 2.4 X10*3/uL (1.2-4.9); Lymphocytes Percent Auto 31.4 % (20-40); Mean Corpuscular HGB Conc 33.4 g/dl (31.0-35.0); Mean Corpuscular Hemoglobin 28.8 pg (27.0-33.0); Mean Corpuscular Volume 86.2 fL (80.0-98.0); Mean Platelet Volume 13.7 fL (9.4-12.3); Monocytes Absolute Auto 0.7 X10*3/uL (0.1-1.2); Monocytes Percent Auto 8.4 % (2-11); Neutrophils Absolute Auto 4.4 x10*3/uL (2.0-8.3); Neutrophils Percent Auto 56.8 % (45-73); Platelet Count 205 X10*3/uL (160-400); Red Blood Count 4.72 X10*6/uL (4.20-5.50); Red Cell Distribution Width 13.6 % (11.0-16.0); White Blood Count 7.8 X10*3/uL (4.8-10.8)
[2022-01-29 09:46] LABS: Alanine Aminotransferase 15 U/L (0-31); Albumin Level 4.2 g/dL (3.5-5.0); Alkaline Phosphatase 78 U/L (39-117); Anion Gap 10 (12-20); Aspartate Amino Transferase 16 U/L (5-31); Bilirubin Total 0.3 mg/dL (0.0-1.0); Blood Urea Nitrogen 24 mg/dL (9-16); C Reactive Protein 0.28 mg/dL (< or = 0.50); Carbon Dioxide 28 mmol/L (22-29); Chloride 106 mmol/L (96-108); Cholesterol 165 mg/dL; Estimated Glomerular Filt Rate > 60; Glucose Random 76 mg/dL (60-115); HDL Cholesterol 52 mg/dL; Iron 57 mcg/dL (30-160); LDL Cholesterol Calculated 93 mg/dl; Percent Iron Saturation 14 % (15-50); Potassium 4.3 mmol/L (3.3-5.1); Sodium 140 mmol/L (135-145); Total Iron Binding Capacity 402 mcg/dL (228-428); Total Protein 7.4 g/dL (6.5-8.0); Triglycerides 100 mg/dL; Unsaturated Iron Binding 345 ug/dL
[2022-01-29 10:02] LABS: Estimated Average Glucose 97 mg/dL
[2022-01-29 10:10] LABS: Ferritin 17 ng/mL (10-250); TSH reflex Free T4 1.63 uIU/mL (0.32-4.0); Vitamin D 25-OH Total 40.6 ng/mL (>30)
[2022-01-29 10:42] LABS: Insulin 11 uU/mL (2-29)
[2022-01-29 11:09] LABS: Folate > 20.0 ng/mL (> or = 4.0); Vitamin B12 539 pg/mL (200-900)
[2022-01-30 11:22] LABS: Calcium (PTHI) 9.1 mg/dL (8.6-10.2); PTHI 62 pg/mL (16-77)
[2022-02-02 06:16] LABS: Zinc 99 mcg/dL (60-130)
[2022-02-02 19:42] LABS: Vitamin A 64 mcg/dL (38-98)
[2022-02-03 10:36] LABS: Vitamin B1 13 nmol/L (8-30)
== END 2022-01-29 08:24 | disposition home or self-care (01) ==
LOC: HO.LAB 08:23
PROVIDERS: Absent Provider Physician Assistant Surgical; Visit Provider Physician Assistant
DX: E66.9 Obesity, unspecified (principal); Z98.84 Bariatric surgery status
CPT/HCPCS: 36415; 80053; 80061; 82306; 82607; 82728; 82746; 83036; 83525; 83540; 83970; 84425; 84443; 84590; 84630; 85025; 86140

== ENCOUNTER 2022-01-31 20:27 | Emergency (ER) | payer OTHER, SELFPAY ==
[2022-01-31 21:24] VITALS: BP 138/73; PULSE 64; RESP 18; TEMP 36.7; O2SAT 98; BMI 32.1
--- NOTE | 2022-01-31 22:59 | ED_ITS ---
HPI - Burn/Smoke Inhalation General Chief complaint: Burn/Smoke Inhalation Stated complaint: Burn on thigh Time Seen by Provider: 01/31/22 22:14 Source: patient Mode of arrival: ambulatory Limitations: no limitations History of Present Illness HPI Narrative: 42-year-old female with history of HTN, dm, insomnia, obesity who presents to the ER for evaluation of a burn to her left anterior thigh she sustained at anyi roximately 19:00 this evening. She reports she was frying slimy in a frying rooney in some hot oil and the pain and an oil fell onto her left thigh. She reports she immediately had redness and blistering to the area. She washed the area with cool water and then applied blue tooth paste to help relieve the pain. MD Complaint: burn Onset (ago): hour(s) Type of Exposure: hot liquid Smoke Inhalation: none Place: home Location - Extremities: left: thigh Severity: severe Severity scale (1-10): 8 Associated symptoms: denies other symptoms Rule if 9: 1. Second degree, blanchable, erythematous burn with multiple fluid-filled blisters. Covering approximately 1% of the leg Related Data Home Medications Medication Instructions Recorded Confirmed calcium citrate 315 mg-vitamin D3 1 tab PO BID 01/26/22 01/26/22 5 mcg (200 unit) tablet multivitamin 1 tab PO DAILY 01/26/22 01/26/22 Allergies Allergy/AdvReac Type Severity Reaction Status Date / Time No Known Allergies Allergy Verified 01/31/22 21:22 Review of Systems Review of Systems: Constitutional: No Fever, No Chills Cardiovascular: No Chest Pain, No SOB Respiratory: No Cough, No Sputum Gastrointestinal: No Nausea, No Vomiting, No Diarrhea, No abdominal Pain Musculoskeletal: No joint pain, No Myalgias Skin: + Skin Lesions, No rash Neuro: No Weakness, No Numbness, No Dizziness, No Headache Psych: + Anxiety/Panic, No Depression Heme/Lymph: No Bruising, No Lymphadenopathy PMFSH Past Medical History Medical History (Updated 01/31/22 @ 23:00 by MANINDER Wasserman) Adjustment disorder, unspecified Back pain BMI 37.0-37.9, adult BMI 38.0-38.9,adult COVID-19 vaccine administered H pylori ulcer Hypertension Insomnia Lower extremity edema Morbid obesity Non-insulin dependent diabetes mellitus Obesity Vitamin B12 deficiency Vitamin D deficiency Surgical History History of carpal tunnel release History of sleeve gastrectomy History of tonsillectomy and adenoidectomy Hx of cholecystectomy Family History Family History Mother Hypertension Diabetes Father Diabetes Hypertension Gout attack Brother Gout attack Hypertension Son No problems noted. Social History Social History Household Members Other:: father Are you a primary acute care registered nurse to a significant other at home: No Do you presently have visiting nurse or other home services: No Alcohol intake: former Patient Tobacco Use Status: Never used Tobacco Advance Directives: No Advance Directives Information Provided: No service: No Physical Exam Vital Signs: Vital Signs: Last Vital Signs Temp 98.1 F 01/31/22 21:24 Pulse 64 01/31/22 21:24 Resp 18 01/31/22 21:24 BP 138/73 01/31/22 21:24 Pulse Ox 98 01/31/22 21:24 O2 Del Method 01/31/22 21:24 BMI result Body Mass Index 32.1 Appearance: Alert. Oriented X3. No acute distress. HEENT: normal inspection CVS: Normal heart rate and rhythm. Pulses normal. Respiratory: No respiratory distress. Skin: Skin warm and dry. Normal skin color. Normal skin turgor. No rashes. Extremities: Left anterior thigh with a moderate-sized, approximately 15 cm x 3 cm linear, erythematous tender area with fluid-filled vesicles, blanchable consistent with a second-degree burn. The burn is covered in a blue tooth paste. Neuro: Oriented X 3. No motor deficit. No sensory deficit. Course Course Course Narrative: 42-year-old female presents to the ER for evaluation of a burn to her left anterior thigh with a hot pain and and hot oil. Surface area is approximately 1%. Exam is consistent with second-degree burn with fluid-filled vesicles, it is blanchable and tender. The tooth paste was carefully and thoroughly cleansed off of the burn with sterile saline. The area was soaked in saline soaked gauze. The burn was then dressed with bacitracin and a nonstick dressings. Patient was counseled on appropriate burn management and care. Signs and symptoms of infection were reviewed. She is stable for discharge home. Work note provided per request. Discharge Plan Discharge Clinical Impression: 2nd deg burn leg Patient Disposition: Home, Self-Care Instructions: Second Degree Burn (ED) Additional Instructions: Use bacitracin to the area 2 times per day. Keep clean and covered. Do not pop the blisters. Take Motrin and/or Tylenol as needed for the pain. You can apply ice as needed for the pain as well. If you develop signs or symptoms of an infection, call your doctor or come back to the emergency room for further evaluation. Prescriptions: No Action multivitamin Tablet 1 tab PO DAILY calcium citrate-vitamin D3 315 mg-5 mcg (200 unit) tablet 1 tab PO BID Stand Alone Forms: Work/School Release
== END 2022-01-31 23:12 | disposition home or self-care (01) ==
PROVIDERS: Emergency Provider Internal Medicine
DX: T24.212A Burn of second degree of left thigh, initial encounter (principal); T31.0 Burns involving less than 10% of body surface; X10.2XXA Contact with fats and cooking oils, initial encounter; E11.9 Type 2 diabetes mellitus without complications; I10 Essential (primary) hypertension; E66.9 Obesity, unspecified; Z68.32 Body mass index [BMI] 32.0-32.9, adult; Y93.G3 Activity, cooking and baking; Y92.030 Kitchen in apartment as the place of occurrence of the external cause; Y99.9 Unspecified external cause status; Z98.84 Bariatric surgery status
CPT/HCPCS: 16020; 99282; 99283

== ENCOUNTER → 2022-04-11 15:26 | Outpatient (BNVA) | payer OTHER, SELFPAY | PROVIDERS: Visit Provider Physician Assistant Surgical | DX: E66.9 Obesity, unspecified (principal); Z98.84 Bariatric surgery status | CPT/HCPCS: 99212 ==

== ENCOUNTER → 2022-07-16 13:41 | Outpatient (BNVA) | payer OTHER, SELFPAY | LOC: CF 07-17 11:14 | PROVIDERS: PCP Nurse Practitioner Family; Visit Provider Physician Assistant Surgical | DX: E66.9 Obesity, unspecified (principal); Z98.84 Bariatric surgery status; Z68.31 Body mass index [BMI] 31.0-31.9, adult | CPT/HCPCS: 99212 ==

== ENCOUNTER 2022-07-17 11:14 | Outpatient (REF) | payer OTHER, SELFPAY ==
[2022-07-17 11:30] LABS: MANUAL DIFF FLAG NO
[2022-07-17 11:53] LABS: Basophils Absolute Auto 0.1 X10*3/uL (0.0-0.2); Basophils Percent Auto 0.7 % (0-2); Eosinophils Absolute Auto 0.3 X10*3/uL (0.0-0.4); Eosinophils Percent Auto 3.1 % (0-4); Hematocrit 43.1 % (37.0-47.0); Hemoglobin 13.9 g/dl (12.0-16.0); Imm Gran Abs Auto 0.01 X10*3/uL (0.00-0.03); Imm Gran Pct Auto 0.1 % (0.0-0.4); Lymphocytes Absolute Auto 2.5 X10*3/uL (1.2-4.9); Lymphocytes Percent Auto 30.2 % (20-40); Mean Corpuscular HGB Conc 32.3 g/dl (31.0-35.0); Mean Corpuscular Hemoglobin 28.4 pg (27.0-33.0); Mean Corpuscular Volume 88.1 fL (80.0-98.0); Mean Platelet Volume 13.4 fL (9.4-12.3); Monocytes Absolute Auto 0.7 X10*3/uL (0.1-1.2); Neutrophils Absolute Auto 4.9 x10*3/uL (2.0-8.3); Neutrophils Percent Auto 57.9 % (45-73); Platelet Count 218 X10*3/uL (160-400); Red Blood Count 4.89 X10*6/uL (4.20-5.50); Red Cell Distribution Width 12.8 % (11.0-16.0); White Blood Count 8.4 X10*3/uL (4.8-10.8)
[2022-07-17 11:59] LABS: Estimated Average Glucose 103 mg/dL; Hemoglobin A1c % 5.2 %
[2022-07-17 13:21] LABS: Alanine Aminotransferase 9 U/L (0-31); Albumin Level 4.3 g/dL (3.5-5.0); Alkaline Phosphatase 78 U/L (39-117); Anion Gap 11 (12-20); Aspartate Amino Transferase 15 U/L (5-31); Bilirubin Total 0.8 mg/dL (0.0-1.0); Blood Urea Nitrogen 17 mg/dL (9-16); C Reactive Protein 0.41 mg/dL (< or = 0.50); Calcium 9.3 mg/dL (8.4-10.2); Carbon Dioxide 29 mmol/L (22-29); Chloride 106 mmol/L (96-108); Cholesterol 157 mg/dL; Estimated Glomerular Filt Rate > 60; Glucose Random 86 mg/dL (60-115); HDL Cholesterol 56 mg/dL; Iron 114 mcg/dL (30-160); LDL Cholesterol Calculated 81 mg/dl; Percent Iron Saturation 30 % (15-50); Potassium 5.1 mmol/L (3.3-5.1); Sodium 141 mmol/L (135-145); Total Iron Binding Capacity 383 mcg/dL (228-428); Total Protein 7.6 g/dL (6.5-8.0); Triglycerides 101 mg/dL; Unsaturated Iron Binding 269 ug/dL
[2022-07-17 13:25] LABS: Ferritin 26 ng/mL (10-250); Insulin 9 uU/mL (2-29); TSH reflex Free T4 1.62 uIU/mL (0.32-4.0); Vitamin D 25-OH Total 39.8 ng/mL (>30)
[2022-07-17 13:36] LABS: Folate 17.8 ng/mL (> or = 4.0); Vitamin B12 815 pg/mL (200-900)
[2022-07-18 10:48] LABS: Calcium (PTHI) 9.2 mg/dL (8.6-10.2); PTHI 50 pg/mL (16-77)
[2022-07-21 17:09] LABS: Zinc 93 mcg/dL (60-130)
[2022-07-22 17:19] LABS: Vitamin B1 22 nmol/L (8-30)
[2022-07-22 20:39] LABS: Vitamin A 63 mcg/dL (38-98)
== END 2022-07-17 11:15 | disposition home or self-care (01) ==
LOC: HO.LAB 11:14
PROVIDERS: Visit Provider Physician Assistant Surgical
DX: Z98.84 Bariatric surgery status (principal)
CPT/HCPCS: 36415; 80053; 80061; 82306; 82607; 82728; 82746; 83036; 83525; 83540; 83970; 84425; 84443; 84590; 84630; 85025; 86140

== ENCOUNTER 2022-07-24 02:17 | Inpatient (IN) | payer OTHER, SELFPAY ==
[2022-07-24] VITALS (16 sets, daily range): BP systolic 107–151; BP diastolic 60–90; PULSE 53–81; RESP 14–18; TEMP 36.3–37.2; O2SAT 95–100; BMI 31.9; BMI 33.0
--- NOTE | ~2022-07-24 | CT_ITS ---
EXAMINATION: CT ABDOMEN AND PELVIS WITHOUT CONTRAST CLINICAL INFORMATION: Abdominal pain. Gastric sleeve. COMPARISON: None TECHNIQUE: Multidetector volumetric imaging was performed from the superior aspect of the liver through the pubic symphysis. Sagittal and coronal reformatted images were obtained on the technologist's workstation. This CT examination was performed using dose optimization techniques as appropriate, variously including the following: *Automated exposure control *Adjustment of mA and/or kV according to patient size (this includes techniques or standardized protocols for targeted exams where dose is matched to indication/reason for exam; i.e. extremities or head) *Use of iterative reconstruction technique DLP: 686 mGy-cm FINDINGS: LUNG BASES: The visualized lung bases are unremarkable. LIVER, GALLBLADDER, AND BILIARY TREE: The liver is normal in size, shape, and attenuation. No focal hepatic lesion or biliary ductal dilatation is present. Cholecystectomy. PANCREAS: Unremarkable. SPLEEN: Unremarkable. ADRENAL GLANDS: Unremarkable. KIDNEYS AND URETERS: The kidneys are normal in size, shape, and attenuation. No hydronephrosis, hydroureter, or calculi seen. No perinephric stranding. BLADDER: Unremarkable. GASTROINTESTINAL TRACT: Postsurgical changes of gastric sleeve. Normal caliber small bowel. No obstruction. Appendicolith noted at the appendix. The appendix is prominent, measuring 0.9 cm. There is gas noted within the appendix. Very faint inflammation of the fat in this area. The colon is otherwise unremarkable. No free air. No significant free fluid. ABDOMINAL WALL: No significant hernia is appreciated. LYMPH NODES: Normal. VASCULAR: Unremarkable. PELVIC VISCERA: The uterus and adnexa are unremarkable. OSSEOUS STRUCTURES: No acute or suspicious osseous abnormality. CT/CT abdomen pelvis wo IV con IMPRESSION: 1. Appendicolith noted at the appendix. The appendix is mildly prominent with faint inflammation of the fat in this area. Although there is gas seen in the appendiceal lumen, this could represent early appendicitis. 2. Postsurgical changes of gastric sleeve. Fleischner guidelines were followed.
--- NOTE | 2022-07-24 03:08 | ED_ITS ---
HPI - Abdominal Pain General Chief Complaint: Abdominal Pain Stated Complaint: abdominal pain Time Seen by Provider: 07/24/22 03:00 Source: patient Mode of arrival: ambulatory Limitations: no limitations History of Present Illness HPI narrative: Patient comes to the emergency room complaining of abdominal fullness and discomfort. Patient states that a few hours prior to arrival, patient fried steak and fries and might have eaten a large amount that she is allowed to. Patient states that she had a gastric sleeve surgery approximately 1 and half years ago. Patient was hoping that by waiting the pain would go away but did not improve. Patient denies any vomiting or diarrhea. Related Data Home Medications Medication Instructions Recorded Confirmed multivitamin 1 tab PO DAILY 01/26/22 07/16/22 Allergies Allergy/AdvReac Type Severity Reaction Status Date / Time No Known Allergies Allergy Verified 07/16/22 13:52 Review of Systems Review of Systems Constitutional : No Weight loss, No Fever, No Chills, No Night Sweats, No Fatigue, No Malaise ENT/Mouth : No Hearing loss, No Ear Pain, No Nasal Congestion, No Sinus Pain, No Hoarseness, No sore throat, No Rhinorrhea, No Swallowing Difficulty Eyes: No Eye Pain, No Swelling, No Redness, No Foreign Body, No Discharge, No Vision Changes Cardiovascular : No Chest Pain, No SOB, No Dyspnea on Exertion, No Orthopnea, No Edema, No Palpitations Respiratory : No Cough, No Sputum, No Wheezing, No Smoke Exposure, No Dyspnea Gastrointestinal : No Nausea, No Vomiting, No Diarrhea, No Constipation, complaining of abdominal epigastric pain and distension Genitourinary : no irregular bleeding, No Dysuria, No Urinary Frequency, No Hematuria, No Urinary Incontinence, No Urgency, No Flank Pain, No Urinary Flow Changes, No Hesitancy Musculoskeletal : No joint pain, No Myalgias, No Joint Swelling Skin : No Skin Lesions, No rash Neuro : No Weakness, No Numbness, No Paresthesias, No Loss of Consciousness, No Dizziness, No Headache Psych : No Anxiety/Panic, No Depression, No SI/HI/AH/VH, No Social Issues, Heme/Lymph: No Bruising, No Bleeding,No Lymphadenopathy Endocrine : No Polyuria, No Polydipsia, No Temperature Intolerance PMFSH Past Medical History Medical History Adjustment disorder, unspecified Back pain BMI 37.0-37.9, adult BMI 38.0-38.9,adult COVID-19 vaccine administered H pylori ulcer Hypertension Insomnia Lower extremity edema Morbid obesity Non-insulin dependent diabetes mellitus Obesity Vitamin B12 deficiency Vitamin D deficiency Surgical History History of carpal tunnel release History of sleeve gastrectomy History of tonsillectomy and adenoidectomy Hx of cholecystectomy Family History Family History Mother Hypertension Diabetes Father Diabetes Hypertension Gout attack Brother Gout attack Hypertension Son No problems noted. Social History Social History Household Members Other:: father Are you a primary aged or disabled care worker to a significant other at home: No Do you presently have visiting nurse or other home services: No Alcohol intake: former Patient Tobacco Use Status: Never used Tobacco Advance Directives: No service: No Physical Exam ED Vital Signs: Vital Signs - 24 hr 07/24/22 02:24 Temperature 97.9 F Pulse Rate 66 Respiratory Rate 18 Blood Pressure 138/89 Pulse Oximetry 100 Oxygen Delivery Method Room Air BMI result Body Mass Index 31.9 Const Other: Appearance: Alert. Oriented X3. No acute distress. Eyes: Pupils equal, round and reactive to light. ENT: Pharynx normal. Neck: Normal inspection. Neck supple. No lymph nodes noted. No crepitus CVS: Normal heart rate and rhythm. Pulses normal. Normal S1 and S2 Respiratory: No respiratory distress. Breath sounds normal. No Wheezing. No rales Abdomen: Soft, nondistended, very mild discomfort to palpation in epigastric area, mild to moderate pain to palpation in the suprapubic area and right lower quadrant, no guarding, no peritoneal signs Skin: Skin warm and dry. Normal skin color. Normal skin turgor. Extremities: No lower extremity edema. No Lacerations. No Rash Neuro: Oriented X 3. No motor deficit. No sensory deficit. Moving all extremities. No slurred speech. CN 2 through 12 grossly intact Psych: calm, cooperative, normal affect Course Course Course Narrative: -labs and CT scan pending Medical Decision Making Medical Decision Making MDM Narrative: -patient has a white blood cell count of 14.5, CT scan shows an appendicolith, appendix is prominent measuring 0.9 cm which could represent early appendicitis. -I discussed the CT scan and labs with Dr. Chávez, patient will be admitted to the surgical service. Differential Diagnosis Differential Diagnoses: The differential diagnosis associated with the presentation includes (Gastric problem, gastritis, peptic ulcer, appendicitis) Admission/Observation Consideration of admission/observation: Escalation of care including admission/observation considered (After discussing the labs, imaging and physical presentation with Dr. Chávez, patient will be admitted to surgical service) Consult Healthcare Provider Management of the patient was discussed with: Fire Chief Deputy (Dr. Chávez from surgery) Lab Data MDM Lab Attestation statement: I reviewed the patient's lab results. 07/24/22 03:13 07/24/22 03:13 Labs: Lab Results 07/24/22 07/24/22 07/24/22 Range/Units 03:13 03:13 03:13 WBC 14.5 H (4.8-10.8) X10*3/uL RBC 4.68 (4.20-5.50) X10*6/uL Hgb 13.5 (12.0-16.0) g/dl Hct 40.8 (37.0-47.0) % MCV 87.2 (80.0-98.0) fL MCH 28.8 (27.0-33.0) pg MCHC 33.1 (31.0-35.0) g/dl RDW 12.8 (11.0-16.0) % Plt Count 188 (160-400) X10*3/uL MPV 13.7 H (9.4-12.3) fL Immature Gran % (Auto) 0.3 (0.0-0.4) % Neut % (Auto) 76.3 H (45-73) % Lymph % (Auto) 14.6 L (20-40) % [place] % (Auto) 7.0 (2-11) % Eos % (Auto) 1.4 (0-4) % Baso % (Auto) 0.4 (0-2) % Lymph # (Auto) 2.1 (1.2-4.9) X10*3/uL [place] # (Auto) 1.0 (0.1-1.2) X10*3/uL Eos # (Auto) 0.2 (0.0-0.4) X10*3/uL Baso # (Auto) 0.1 (0.0-0.2) X10*3/uL Abs Immat Gran (auto) 0.04 H (0.00-0.03) X10*3/uL Absolute Neuts (auto) 11.1 H (2.0-8.3) x10*3/uL Absolute Nucleated RBC 0.000 (0.0-0.012) X10*3/uL Nucleated RBC % (auto) 0.0 (0.0-0.2) /100WBC Smear Tech's Comments VERIFIED Sodium 139 (135-145) mmol/L Potassium 4.2 (3.3-5.1) mmol/L Chloride 104 (96-108) mmol/L Carbon Dioxide 26 (22-29) mmol/L Anion Gap 13 (12-20) BUN 19 H (9-16) mg/dL Creatinine 0.90 (0.5-1.4) mg/dL Estim Creat Clear Calc 85.5 Estimated GFR > 60 Random Glucose 94 (60-115) mg/dL Calcium 9.2 (8.4-10.2) mg/dL Total Bilirubin 0.3 (0.0-1.0) mg/dL Direct Bilirubin < 0.2 (0.0-0.5) mg/dL AST 15 (5-31) U/L ALT 12 (0-31) U/L Alkaline Phosphatase 82 (39-117) U/L Total Protein 7.2 (6.5-8.0) g/dL Albumin 4.1 (3.5-5.0) g/dL Lipase 45 (8-78) U/L Urine Color Yellow Urine Appearance Clear Urine pH 5.5 (5.0-9.0) Ur Specific [place] 1.025 (1.005-1.025) Urine Protein Negative (Neg-Trace) mg/dL Urine Glucose (UA) Negative (Negative) mg/dL Urine Ketones Negative (Negative) mg/dL Urine Blood Negative (Negative) Urine Nitrite Negative (Negative) Ur Leukocyte Esterase Negative (Negative) Urine Test (NEGATIVE) 07/24/22 Range/Units 03:13 WBC (4.8-10.8) X10*3/uL RBC (4.20-5.50) X10*6/uL Hgb (12.0-16.0) g/dl Hct (37.0-47.0) % MCV (80.0-98.0) fL MCH (27.0-33.0) pg MCHC (31.0-35.0) g/dl RDW (11.0-16.0) % Plt Count (160-400) X10*3/uL MPV (9.4-12.3) fL Immature Gran % (Auto) (0.0-0.4) % Neut % (Auto) (45-73) % Lymph % (Auto) (20-40) % [place] % (Auto) (2-11) % Eos % (Auto) (0-4) % Baso % (Auto) (0-2) % Lymph # (Auto) (1.2-4.9) X10*3/uL [place] # (Auto) (0.1-1.2) X10*3/uL Eos # (Auto) (0.0-0.4) X10*3/uL Baso # (Auto) (0.0-0.2) X10*3/uL Abs Immat Gran (auto) (0.00-0.03) X10*3/uL Absolute Neuts (auto) (2.0-8.3) x10*3/uL Absolute Nucleated RBC (0.0-0.012) X10*3/uL Nucleated RBC % (auto) (0.0-0.2) /100WBC Smear Tech's Comments Sodium (135-145) mmol/L Potassium (3.3-5.1) mmol/L Chloride (96-108) mmol/L Carbon Dioxide (22-29) mmol/L Anion Gap (12-20) BUN (9-16) mg/dL Creatinine (0.5-1.4) mg/dL Estim Creat Clear Calc Estimated GFR Random Glucose (60-115) mg/dL Calcium (8.4-10.2) mg/dL Total Bilirubin (0.0-1.0) mg/dL Direct Bilirubin (0.0-0.5) mg/dL AST (5-31) U/L ALT (0-31) U/L Alkaline Phosphatase (39-117) U/L Total Protein (6.5-8.0) g/dL Albumin (3.5-5.0) g/dL Lipase (8-78) U/L Urine Color Urine Appearance Urine pH (5.0-9.0) Ur Specific [place] (1.005-1.025) Urine Protein (Neg-Trace) mg/dL Urine Glucose (UA) (Negative) mg/dL Urine Ketones (Negative) mg/dL Urine Blood (Negative) Urine Nitrite (Negative) Ur Leukocyte Esterase (Negative) Urine Test NEGATIVE (NEGATIVE) Independent Interpretation I performed an independent interpretation of an: CT Scan Interpretation: My interpretation of CT scan, no abdominal obstruction Radiology Impression Discussion of test interpretation with radiology: I have reviewed the radiologist's reading. Radiologist Impression: FINDINGS: LUNG BASES: The visualized lung bases are unremarkable.? LIVER, GALLBLADDER, AND BILIARY TREE: The liver is normal in size, shape, and attenuation. No focal hepatic lesion or biliary ductal dilatation is present. Cholecystectomy.? PANCREAS: Unremarkable.? SPLEEN: Unremarkable.? ADRENAL GLANDS: Unremarkable.? KIDNEYS AND URETERS: The kidneys are normal in size, shape, and attenuation. No hydronephrosis, hydroureter, or calculi seen. No perinephric stranding. ? BLADDER: Unremarkable.? GASTROINTESTINAL TRACT: Postsurgical changes of gastric sleeve. Normal caliber small bowel. No obstruction. Appendicolith noted at the appendix. The appendix is prominent, measuring 0.9 cm. There is gas noted within the appendix. Very faint inflammation of the fat in this area. The colon is otherwise unremarkable. No free air. No significant free fluid.? ABDOMINAL WALL: No significant hernia is appreciated.? LYMPH NODES: Normal. VASCULAR: Unremarkable. PELVIC VISCERA: The uterus and adnexa are unremarkable.? OSSEOUS STRUCTURES: No acute or suspicious osseous abnormality.? CT/CT abdomen pelvis wo IV con IMPRESSION: 1.? Appendicolith noted at the appendix. The appendix is mildly prominent with faint inflammation of the fat in this area. Although there is gas seen in the appendiceal lumen, this could represent early appendicitis. 2.? Postsurgical changes of gastric sleeve. ? Fleischner guidelines were followed. Critical Care Time Critical Care Time Critical Care Time: Yes Total Critical Care Time: 30 Attestation: I have personally provided critical care time. Time includes review of lab data, radiology results, discussion with consultants, and monitoring for potential decompensation. Intervention performed as documented. Discharge Plan Discharge Clinical Impression: Acute appendicitis Patient Disposition: Admitted As Inpatient Prescriptions: No Action multivitamin Tablet 1 tab PO DAILY
[2022-07-24 03:19] LABS: Basophils Absolute Auto 0.1 X10*3/uL (0.0-0.2); Basophils Percent Auto 0.4 % (0-2); Mean Corpuscular HGB Conc 33.1 g/dl (31.0-35.0); Mean Corpuscular Hemoglobin 28.8 pg (27.0-33.0); SCAN SMEAR FLAG 1
[2022-07-24 03:21] LABS: Appearance Urine Clear; Color Urine Yellow; Eosinophils Absolute Auto 0.2 X10*3/uL (0.0-0.4); Eosinophils Percent Auto 1.4 % (0-4); Glucose Urine UA Negative (Negative); Hematocrit 40.8 % (37.0-47.0); Hemoglobin 13.5 g/dl (12.0-16.0); Imm Gran Abs Auto 0.04 X10*3/uL (0.00-0.03); Imm Gran Pct Auto 0.3 % (0.0-0.4); Leukocyte Esterase Urine Negative (Negative); Lymphocytes Absolute Auto 2.1 X10*3/uL (1.2-4.9); Lymphocytes Percent Auto 14.6 % (20-40); MANUAL DIFF FLAG SCAN; Mean Corpuscular Volume 87.2 fL (80.0-98.0); Mean Platelet Volume 13.7 fL (9.4-12.3); Neutrophils Absolute Auto 11.1 x10*3/uL (2.0-8.3); Neutrophils Percent Auto 76.3 % (45-73); Nitrite Urine Negative (Negative); PH 5.5 (5.0-9.0); Platelet Count 188 X10*3/uL (160-400); Red Blood Count 4.68 X10*6/uL (4.20-5.50); Red Cell Distribution Width 12.8 % (11.0-16.0); Specific Gravity - Urine 1.025 (1.005-1.025); Urine Blood Negative (Negative); Urine Ketones Negative (Negative); Urine Protein Negative (Neg-Trace); White Blood Count 14.5 X10*3/uL (4.8-10.8)
[2022-07-24 03:24] LABS: PLT ABN DIST 1
[2022-07-24 03:26] LABS: UPreg QC Valid YES; Urine Pregnancy NEGATIVE (NEGATIVE)
[2022-07-24 03:33] LABS: Alanine Aminotransferase 12 U/L (0-31); Albumin Level 4.1 g/dL (3.5-5.0); Alkaline Phosphatase 82 U/L (39-117); Anion Gap 13 (12-20); Aspartate Amino Transferase 15 U/L (5-31); Bilirubin Direct < 0.2 mg/dL (0.0-0.5); Bilirubin Total 0.3 mg/dL (0.0-1.0); Blood Urea Nitrogen 19 mg/dL (9-16); Calcium 9.2 mg/dL (8.4-10.2); Carbon Dioxide 26 mmol/L (22-29); Chloride 104 mmol/L (96-108); Creatinine Clr Calc Pharmacy 85.5; Estimated Glomerular Filt Rate > 60; Glucose Random 94 mg/dL (60-115); Lipase 45 U/L (8-78); Potassium 4.2 mmol/L (3.3-5.1); Sodium 139 mmol/L (135-145); Total Protein 7.2 g/dL (6.5-8.0)
[2022-07-24 03:40] LABS: SLIDE REVIEW VERIFIED
[2022-07-24] MEDS: ondansetron HCL 4 MG/2 ML VIAL IVPUSH ×2 (05:45→10:22)
[2022-07-24] MEDS: Piperacillin Sodium/Tazobactam 3.375 GM in 0.9 % Sodium Chloride 50 ML IV (05:45)
[2022-07-24] MEDS: Morphine Sulfate 4 MG/ML CARTRIDGE IVPUSH (05:45)
[2022-07-24] MEDS: 0.9 % Sodium Chloride 1,000 ML 999 ML IVCONT (05:45)
[2022-07-24 07:17] LABS: COVID-19 Test Negative (Negative); IDNOW Serial# BCCEAD1C
[2022-07-24] MEDS: 0.9 % Sodium Chloride Flush 3 ML SYRINGE IVFLUSH (08:13)
[2022-07-24] MEDS: Lactated Ringers 1,000 ML 80 ML IVCONT ×2 (08:13→21:43)
--- NOTE | 2022-07-24 08:18 | PM.HPGS ---
History of Present Illness History of Present Illness Date of Service: 07/25/22 Chief complaint: appendicitis Narrative: Jennifer Black is a 42 year old female who came to the emergency room last night because of her abdominal pain. She said that this started yesterday morning. She stated that started around the upper abdomen at that time but since then, has moved to the right lower quadrant. The pain has been constant. She denies any associated vomiting. She denies any fever or chills. She denies any similar episodes in the past. she denies other GI complaints She has a history of laparoscopic sleeve gastrectomy in 2020. She also had a laparoscopic cholecystectomy in 2015. Review of Systems Constitutional: Constitutional: Denies chills and Denies fever(s) Cardiovascular: Cardiovascular: Denies chest pain, Denies dyspnea and Denies dyspnea on exertion Respiratory: Respiratory: Denies cough, Denies dyspnea and Denies dyspnea on exertion Gastrointestinal: Gastrointestinal: Denies hematochezia and Denies change in bowel habits Genitourinary: Genitourinary: Denies hematuria Musculoskeletal: Musculoskeletal: Denies back pain and Denies limited range of motion Neurologic: Denies focal weakness and Denies convulsions Psychiatric: Psychiatric: Denies depression and Denies mood swings PMFSH Past Medical History Medical History (Updated 07/24/22 @ 12:40 by Caryn Cruz RN) Adjustment disorder, unspecified Back pain BMI 37.0-37.9, adult BMI 38.0-38.9,adult COVID-19 vaccine administered H pylori ulcer Hypertension Insomnia Lower extremity edema Morbid obesity Non-insulin dependent diabetes mellitus Obesity Vitamin B12 deficiency Vitamin D deficiency Family History Family History Mother Hypertension Diabetes Father Diabetes Hypertension Gout attack Brother Gout attack Hypertension Son No problems noted. Surgical History Surgical History History of carpal tunnel release History of sleeve gastrectomy History of tonsillectomy and adenoidectomy Hx of cholecystectomy Social History Social History Household Members: Spouse and Children Household Members Other:: father Housing: Apartment Are you a primary emergency care tech to a significant other at home: No Do you presently have visiting nurse or other home services: No Alcohol intake: former Patient Tobacco Use Status: Never used Tobacco Use of substances other than those prescribed or required for medical reasons: No Currently Displaying Signs/Symptoms of Drug Intoxication Withdrawal: No Have you been hit, kicked, punched, or otherwise hurt by someone within the past year? If so, by whom?: No Do you feel safe in your current relationship?: Yes Is there a partner from a previous relationship who is making you feel unsafe now?: No Are you made to feel afraid or neglected: No Are you DNR?: No Advance Directives: No Advance Directives Information Provided: No (declined) Advance Directives on File: No Do you have thoughts of harming others: None Do you have a plan to hurt others: No Plan Eating poorly because of decreased appetite: No Nutrition Risks: No Nutritional Risk Patient : No : No Poor oral hygiene: No service: No Meds Allergies Allergy/AdvReac Type Severity Reaction Status Date / Time No Known Allergies Allergy Verified 07/16/22 13:52 Active Medications: Current Medications Lactated Ringer's (Lr) 1,000 mls @ 80 mls/hr IVCONT .[id number] [facility] Last Admin: 07/24/22 08:13 Dose: 80 mls/hr Morphine Sulfate (Morphine Sulfate 4 Mg/Ml Cartridge) 3 mg IVPUSH Q3H PRN; Protocol PRN Reason: Pain, Severe (Pain Scale 7-10) Ondansetron HCl (Ondansetron Hcl 4 Mg/2 Ml Vial) 4 mg IVPUSH Q8H PRN PRN Reason: nausea Sodium Chloride (0.9 % Sodium Chloride Flush 3 Ml Syringe) 3 ml IVFLUSH QSHIFT [facility] Last Admin: 07/24/22 08:13 Dose: 3 ml Home Medications Medication Instructions Recorded Confirmed Last Taken Type biotin 2,500 mcg capsule 2,500 mcg PO DAILY 07/24/22 07/24/22 07/23/22 History Physical Exam Vital Signs: Vital Signs: Last Vital Signs Temp 98.3 F 07/24/22 05:55 Pulse 60 07/24/22 07:43 Resp 14 07/24/22 07:43 BP 125/71 07/24/22 07:43 Pulse Ox 100 07/24/22 07:43 O2 Del Method 07/24/22 07:43 BMI result Body Mass Index 31.9 Const: General: comfortable and no acute distress Orientation/consciousness: patient oriented x3 Neck: Neck: Yes no lymphadenopathy Resp: Auscultation: clear to auscultation bilaterally Cardio: Rhythm: regular rhythm GI: Other: Tender on the right lower quadrant, no guarding rebound Palpation (GI): Soft to palpation, Tenderness to palpation present (GI) and no guarding Neuro: General: patient oriented x3 Results Results Labs: Short CBC 07/24/22 Range/Units 03:13 WBC 14.5 H (4.8-10.8) X10*3/uL Hgb 13.5 (12.0-16.0) g/dl Hct 40.8 (37.0-47.0) % Plt Count 188 (160-400) X10*3/uL BMP 07/24/22 03:13 Sodium 139 Potassium 4.2 Chloride 104 Carbon Dioxide 26 BUN 19 H Creatinine 0.90 Calcium 9.2 Liver Function 07/24/22 Range/Units 03:13 Total Bilirubin 0.3 (0.0-1.0) mg/dL Direct Bilirubin < 0.2 (0.0-0.5) mg/dL AST 15 (5-31) U/L ALT 12 (0-31) U/L Alkaline Phosphatase 82 (39-117) U/L Albumin 4.1 (3.5-5.0) g/dL Urine 07/24/22 07/24/22 Range/Units 03:13 03:13 Urine Color Yellow Urine Appearance Clear Urine pH 5.5 (5.0-9.0) Ur Specific [place] 1.025 (1.005-1.025) Urine Protein Negative (Neg-Trace) mg/dL Urine Glucose (UA) Negative (Negative) mg/dL Urine Test NEGATIVE (NEGATIVE) Laboratory Results WBC 14.5 X10*3/uL (4.8-10.8) H 07/24/22 03:13 RBC 4.68 X10*6/uL (4.20-5.50) 07/24/22 03:13 Hgb 13.5 g/dl (12.0-16.0) 07/24/22 03:13 Hct 40.8 % (37.0-47.0) 07/24/22 03:13 MCV 87.2 fL (80.0-98.0) 07/24/22 03:13 MCH 28.8 pg (27.0-33.0) 07/24/22 03:13 MCHC 33.1 g/dl (31.0-35.0) 07/24/22 03:13 RDW 12.8 % (11.0-16.0) 07/24/22 03:13 Plt Count 188 X10*3/uL (160-400) 07/24/22 03:13 MPV 13.7 fL (9.4-12.3) H 07/24/22 03:13 Immature Gran % (Auto) 0.3 % (0.0-0.4) 07/24/22 03:13 Neut % (Auto) 76.3 % (45-73) H 07/24/22 03:13 Lymph % (Auto) 14.6 % (20-40) L 07/24/22 03:13 [place] % (Auto) 7.0 % (2-11) 07/24/22 03:13 Eos % (Auto) 1.4 % (0-4) 07/24/22 03:13 Baso % (Auto) 0.4 % (0-2) 07/24/22 03:13 Lymph # (Auto) 2.1 X10*3/uL (1.2-4.9) 07/24/22 03:13 [place] # (Auto) 1.0 X10*3/uL (0.1-1.2) 07/24/22 03:13 Eos # (Auto) 0.2 X10*3/uL (0.0-0.4) 07/24/22 03:13 Baso # (Auto) 0.1 X10*3/uL (0.0-0.2) 07/24/22 03:13 Abs Immat Gran (auto) 0.04 X10*3/uL (0.00-0.03) H 07/24/22 03:13 Absolute Neuts (auto) 11.1 x10*3/uL (2.0-8.3) H 07/24/22 03:13 Absolute Nucleated RBC 0.000 X10*3/uL (0.0-0.012) 07/24/22 03:13 Nucleated RBC % (auto) 0.0 /100WBC (0.0-0.2) 07/24/22 03:13 Smear Tech's Comments VERIFIED 07/24/22 03:13 Sodium 139 mmol/L (135-145) 07/24/22 03:13 Potassium 4.2 mmol/L (3.3-5.1) 07/24/22 03:13 Chloride 104 mmol/L (96-108) 07/24/22 03:13 Carbon Dioxide 26 mmol/L (22-29) 07/24/22 03:13 Anion Gap 13 (12-20) 07/24/22 03:13 BUN 19 mg/dL (9-16) H 07/24/22 03:13 Creatinine 0.90 mg/dL (0.5-1.4) 07/24/22 03:13 Estim Creat Clear Calc 85.5 07/24/22 03:13 Estimated GFR > 60 07/24/22 03:13 Random Glucose 94 mg/dL (60-115) 07/24/22 03:13 Calcium 9.2 mg/dL (8.4-10.2) 07/24/22 03:13 Total Bilirubin 0.3 mg/dL (0.0-1.0) 07/24/22 03:13 Direct Bilirubin < 0.2 mg/dL (0.0-0.5) 07/24/22 03:13 AST 15 U/L (5-31) 07/24/22 03:13 ALT 12 U/L (0-31) 07/24/22 03:13 Alkaline Phosphatase 82 U/L (39-117) 07/24/22 03:13 Total Protein 7.2 g/dL (6.5-8.0) 07/24/22 03:13 Albumin 4.1 g/dL (3.5-5.0) 07/24/22 03:13 Lipase 45 U/L (8-78) 07/24/22 03:13 Urine Color Yellow 07/24/22 03:13 Urine Appearance Clear 07/24/22 03:13 Urine pH 5.5 (5.0-9.0) 07/24/22 03:13 Ur Specific [place] 1.025 (1.005-1.025) 07/24/22 03:13 Urine Protein Negative mg/dL (Neg-Trace) 07/24/22 03:13 Urine Glucose (UA) Negative mg/dL (Negative) 07/24/22 03:13 Urine Ketones Negative mg/dL (Negative) 07/24/22 03:13 Urine Blood Negative (Negative) 07/24/22 03:13 Urine Nitrite Negative (Negative) 07/24/22 03:13 Ur Leukocyte Esterase Negative (Negative) 07/24/22 03:13 Urine Test NEGATIVE (NEGATIVE) 07/24/22 03:13 COVID-19 (DAVIDE) Negative (Negative) 07/24/22 06:50 COVID-19 Clin Com See Note 07/24/22 06:50 Impressions Abdomen/Pelvis CT 07/24/22 03:49 IMPRESSION: 1. Appendicolith noted at the appendix. The appendix is mildly prominent with faint inflammation of the fat in this area. Although there is gas seen in the appendiceal lumen, this could represent early appendicitis. 2. Postsurgical changes of gastric sleeve. Fleischner guidelines were followed. Assessment and Plan (1) Acute appendicitis: Status: Acute She has had abdominal pain since yesterday and currently describes this as being on the right lower quadrant. She is tender in this area. Her CAT scan shows an appendicoliths in the appendix along with some mild inflammatory changes consistent with acute appendicitis. I explained to her that it may be best to proceed with appendectomy especially with the presence of the appendicoliths. I explained to her the technique of laparoscopic appendectomy and possible open appendectomy. I reviewed the risks including but not limited to bleeding, infections, injury in 2 other organs including bowel, urinary tract, staple line leak, blood clots, pneumonia, as well as the benefits and alternatives. She understands that there is the option of antibiotic treatment only but I would not recommend this in view of the presence of the appendicoliths. She wants to proceed with appendectomy. She will be added on to the OR schedule today. I have reviewed her CT images with the radiologist. Time Spent With Patient Time: Total time managing care of this patient today ____ minutes. Quality Stroke Does the patient have a stroke diagnosis?: No VTE Prior VTE?: No VTE Risk Level:: Medical - moderate - high VTE Device Contraindication: N/A - Device Ordered VTE Drug Contraindication: N/A - Med Ordered Procedures Date of Service Date of Service: 07/24/22
--- NOTE | 2022-07-24 09:37 | PHA.MEDREC ---
Pharmacy Consult ? Medication Reconciliation Pharmacy has completed the medication reconciliation.
[2022-07-24] MEDS: Morphine Sulfate 4 MG/ML CARTRIDGE 3 MG IVPUSH (10:22)
--- NOTE | 2022-07-24 13:01 | P.CONAN_ITS ---
HPI - Anesthesia Eval Consult details Narrative: emergency appy PMFSH Active Problems Active Problems: All Active Problems (Updated 07/24/22 @ 12:40 by Caryn Cruz, RN) S/P laparoscopic sleeve gastrectomy (Acute) BMI over 35 (Acute) BMI 32.0-32.9,adult (Acute) Acute appendicitis (Acute) Obesity (Acute) Insomnia (Acute) Non-insulin dependent diabetes mellitus (Acute) Hypertension (Acute) Morbid obesity (Acute) Past Medical History Medical History (Updated 07/24/22 @ 12:40 by Caryn Cruz, RN) Adjustment disorder, unspecified Back pain BMI 37.0-37.9, adult BMI 38.0-38.9,adult COVID-19 vaccine administered H pylori ulcer Hypertension Insomnia Lower extremity edema Morbid obesity Non-insulin dependent diabetes mellitus Obesity Vitamin B12 deficiency Vitamin D deficiency Family History Family History Mother Hypertension Diabetes Father Diabetes Hypertension Gout attack Brother Gout attack Hypertension Son No problems noted. Family history of problems with anesthesia: No Surgical History Surgical History History of carpal tunnel release History of sleeve gastrectomy History of tonsillectomy and adenoidectomy Hx of cholecystectomy History of Problems with Anesthesia: No Social History Social History Household Members: Spouse and Children Household Members Other:: father Housing: Apartment Are you a primary assistant child care teacher to a significant other at home: No Do you presently have visiting nurse or other home services: No Alcohol intake: former Patient Tobacco Use Status: Never used Tobacco Use of substances other than those prescribed or required for medical reasons: No Have you been hit, kicked, punched, or otherwise hurt by someone within the past year? If so, by whom?: No Do you feel safe in your current relationship?: Yes Is there a partner from a previous relationship who is making you feel unsafe now?: No Are you made to feel afraid or neglected: No Are you DNR?: No Advance Directives: No Advance Directives Information Provided: No (declined) Advance Directives on File: No Do you have thoughts of harming others: None Do you have a plan to hurt others: No Plan Eating poorly because of decreased appetite: No Nutrition Risks: No Nutritional Risk Patient : No : No Poor oral hygiene: No service: No Meds Allergies Allergy/AdvReac Type Severity Reaction Status Date / Time No Known Allergies Allergy Verified 07/16/22 13:52 Active Medications: Current Medications Lactated Ringer's (Lr) 1,000 mls @ 80 mls/hr IVCONT .[id number] [facility] Last Admin: 07/24/22 08:13 Dose: 80 mls/hr Morphine Sulfate (Morphine Sulfate 4 Mg/Ml Cartridge) 3 mg IVPUSH Q3H PRN; Protocol PRN Reason: Pain, Severe (Pain Scale 7-10) Last Admin: 07/24/22 10:22 Dose: 3 mg Ondansetron HCl (Ondansetron Hcl 4 Mg/2 Ml Vial) 4 mg IVPUSH Q8H PRN PRN Reason: nausea Last Admin: 07/24/22 10:22 Dose: 4 mg Sodium Chloride (0.9 % Sodium Chloride Flush 3 Ml Syringe) 3 ml IVFLUSH QSHIFT [facility] Last Admin: 07/24/22 08:13 Dose: 3 ml Home Medications Medication Instructions Recorded Confirmed Last Taken Type biotin 2,500 mcg capsule 2,500 mcg PO DAILY 07/24/22 07/24/22 07/23/22 History Exam Exam Date and Time: July 24, 2022 1301 Height,Weight and Vital Signs: Height 5 ft 4 in Weight 87.4 kg Last Vital Signs Temp 97.4 F 07/24/22 12:10 Pulse 54 07/24/22 12:10 Resp 15 07/24/22 12:10 BP 110/71 07/24/22 12:10 Pulse Ox 99 07/24/22 12:10 O2 Del Method 07/24/22 12:10 Pertinent Lab Results Pertinent Lab Results: Laboratory Tests 07/24/22 07/24/22 07/24/22 03:13 03:13 03:13 WBC 14.5 H RBC 4.68 Hgb 13.5 Hct 40.8 MCV 87.2 MCH 28.8 MCHC 33.1 RDW 12.8 Plt Count 188 MPV 13.7 H Immature Gran % (Auto) 0.3 Neut % (Auto) 76.3 H Lymph % (Auto) 14.6 L [place] % (Auto) 7.0 Eos % (Auto) 1.4 Baso % (Auto) 0.4 Lymph # (Auto) 2.1 [place] # (Auto) 1.0 Eos # (Auto) 0.2 Baso # (Auto) 0.1 Abs Immat Gran (auto) 0.04 H Absolute Neuts (auto) 11.1 H Absolute Nucleated RBC 0.000 Nucleated RBC % (auto) 0.0 Smear Tech's Comments VERIFIED Sodium 139 Potassium 4.2 Chloride 104 Carbon Dioxide 26 Anion Gap 13 BUN 19 H Creatinine 0.90 Estim Creat Clear Calc 85.5 Estimated GFR > 60 Random Glucose 94 Calcium 9.2 Total Bilirubin 0.3 Direct Bilirubin < 0.2 AST 15 ALT 12 Alkaline Phosphatase 82 Total Protein 7.2 Albumin 4.1 Lipase 45 Urine Color Yellow Urine Appearance Clear Urine pH 5.5 Ur Specific [place] 1.025 Urine Protein Negative Urine Glucose (UA) Negative Urine Ketones Negative Urine Blood Negative Urine Nitrite Negative Ur Leukocyte Esterase Negative Urine Test COVID-19 (DAVIDE) COVID-Open-Plug 07/24/22 07/24/22 03:13 06:50 WBC RBC Hgb Hct MCV MCH MCHC RDW Plt Count MPV Immature Gran % (Auto) Neut % (Auto) Lymph % (Auto) [place] % (Auto) Eos % (Auto) Baso % (Auto) Lymph # (Auto) [place] # (Auto) Eos # (Auto) Baso # (Auto) Abs Immat Gran (auto) Absolute Neuts (auto) Absolute Nucleated RBC Nucleated RBC % (auto) Smear Tech's Comments Sodium Potassium Chloride Carbon Dioxide Anion Gap BUN Creatinine Estim Creat Clear Calc Estimated GFR Random Glucose Calcium Total Bilirubin Direct Bilirubin AST ALT Alkaline Phosphatase Total Protein Albumin Lipase Urine Color Urine Appearance Urine pH Ur Specific [place] Urine Protein Urine Glucose (UA) Urine Ketones Urine Blood Urine Nitrite Ur Leukocyte Esterase Urine Test NEGATIVE COVID-19 (DAVIDE) Negative COVID-19 Clin Com See Note Airway Mallampati Class: II TM Dist: >3cm Neck ROM: Full Heart: RR Lungs: CTA Assessment and Plan Assessment Anesthesia Assessment: Anesthesia Plan Discussed, Smoking Cess. Discussed and Chart Reviewed Final Anesthetic Review Family History of Problems with Anesthesia: No History of Problems with Anesthesia: No NPO: No ASA Class: II Final Preanesthetic Review: No Changes in Pt Med Stat, Meds/Allgs Chart Reviewed and Consent Obtained/Reviewed Patient Risk: Low Procedure Risk: Low Anesthetic Plan Anesthetic Plan: GA Disposition: Standard PACU
--- NOTE | 2022-07-24 14:19 | P.OP_ITS ---
Operative Note Operative Note Date of Service: 07/24/22 Narrative: Preop diagnosis: Acute appendicitis Postop diagnosis: Acute appendicitis, indurated, mild suppuration Procedure: Laparoscopic appendectomy Surgeon: Nahum Chávez MD personalized living assistant: MANINDER Roca The patient is a 42 year female with right lower quadrant pain and tenderness. She had a CAT scan showing is consistent with acute appendicitis with appendicoliths. She also had leukocytosis. She understood the technique of laparoscopic appendectomy and was aware of the risks, benefits, and alternatives. She was brought to the operating room and placed supine under general anesthesia via endotracheal tube. A Meredith catheter was inserted. The abdomen is prepped and draped in the usual sterile fashion. A surgical time-out was done. The patient received Cefotan 2 g IV preoperatively I made a short incision in the supraumbilical margin using a blade 15. This was carried down through the full-thickness of the skin and subcutaneous fat. There was note of significant fibrotic changes in this area consistent with previous surgeries. I was eventually able to open the fascia. The peritoneum was entered. Through this incision a Rona port was introduced. Pneumoperitoneum was introduced to a pressure of 15 mm hg. From here on the rest of the procedures done under vision with the 10 mm laparoscoped. With laparoscopic visualization I inserted a 5/12 mm port in left lower quadrant through a small stab incision. A 5 mm work introduced a small cyst on on the suprapubic margin. Graspers were placed through these working ports. The patient was placed in a head-down [id number] position. Reflected the small bowel loops away from the right lower quadrant. The appendix was then seen lying in the right lower quadrant hanging inferiorly below the cecum. There was note of a lot of indurated fatty tissue surrounding the appendix especially on the proximal 2/3. We had to carefully separate this using the [place] dissector until were able to clearly identify the base of the appendix. Base of the appendix appeared viable. The entire appendix however appeared to be very indurated and thickened with mild suppuration I used the [place] LigaSure to divide through the mesentery including the appendix. By doing so were able to clearly define the entire appendiceal length all the way to the base. I applied a 30 mm Endo-ROMAINE across the base of the appendix. This was fired and the appendix was completely transected. The appendix was retrieved through the umbilical incision. I reinserted all ports and re-insufflated. I examined the area of dissection. There was some blood clots without any bleeding. I irrigated this and send out the irrigant fluid. There was note of good hemostasis. There was no bleeding despite irrigation . I observed all 4 quadrants. There was no other pathology except for some adhesions to the left of the umbilicus. There is no evidence of any bowel injury There was some small amounts of blood clots as well in the cul-de-sac. I i rrigated this as well . I observed for hemostasis. Once hemostasis was confirmed with direct visualization using the laparoscope, I desufflated the port sites. The fascia of the umbilical incision was closed with [id number] Dexon 0 stitch. Skin closure was achieved on all incisions using Dexon 4-0 subcuticular running sutures. Steri-Strips and dressings were applied. The procedure was c ompleted The patient tolerated procedure well. There were no immediate complications. Initial and final counts of sponges and instruments were correct. Estimated blood loss was about 30 cc The patient was extubated without difficulty and transferred to the recovery room with stable vital signs.
--- NOTE | 2022-07-24 15:59 | MHC.CM.PN ---
KB NOT YET ON UNIT. FAMILY IS IN ROOM AND ABLE TO ANSWER ASSESSMENT QUESTIONS. PATIENT LIVES WITH SPOUSE/HCP (COPY REQUESTED) SHE IS INDEPENDENT WITH ADLS NO DME OR [facility] WORKS FULLTIME. PLAN WILL BE HOME -SELF CARE
--- NOTE | 2022-07-24 16:04 | PM.EVENT ---
Event Note Date of Service: 07/24/22 Event Note: seen postop status post laparoscopic appendectomy this afternoon seems to have adequate pain control looks comfortable abdomen soft stable vital signs continue pain management family in room - updated Time Spent With Patient Time: Total time managing care of this patient today ____ minutes.
[2022-07-24] MEDS: oxyCODONE HCl Immed Release 5 MG TABLET 10 MG PO (21:47)
[2022-07-25 03:57] VITALS: BP 99/57; PULSE 60; RESP 16; TEMP 36.2; O2SAT 97
[2022-07-25 08:00] VITALS: BP 115/66; PULSE 66; RESP 18; TEMP 36.7; O2SAT 99
--- NOTE | 2022-07-25 08:16 | P.PNGS_ITS ---
Subjective Subjective Date of Service: 07/25/22 Interval history: Says she feels well this morning states she had a good night postop pain well controlled Physical Exam Vital Signs: Vital Signs: Last Vital Signs Temp 97.1 F 07/25/22 03:57 Pulse 60 07/25/22 03:57 Resp 16 07/25/22 03:57 BP 99/57 L 07/25/22 03:57 Pulse Ox 97 07/25/22 03:57 O2 Del Method 07/25/22 03:57 O2 Flow Rate 4 07/24/22 14:43 BMI result Body Mass Index 33.0 Const: General: comfortable and no acute distress Resp: Effort & Inspection: normal respiratory effort Cardio: Rate: regular rate GI: Other: dressings dry Palpation (GI): Soft to palpation, not firm, nontender and no guarding Objective Data Active Medications Acetaminophen (Acetaminophen 325 Mg Tablet) 650 mg PO Q6H PRN PRN Reason: pain, fever Docusate Sodium (Docusate Sodium 100 Mg Capsule) 100 mg PO BID PRN PRN Reason: Constipation Heparin Sodium (Porcine) (Heparin Sodium,Porcine 5,000 Unit/Ml Vial) 5,000 unit SUBCUT Q8H [facility] Lactated Ringer's (Lr) 1,000 mls @ 80 mls/hr IVCONT .[id number] LADY Last Admin: 07/25/22 06:45 Dose: Not Given Documented By: MIRIAN Non-Admin Reason: IV Running Ketorolac Tromethamine (Ketorolac Tromethamine 30 Mg/Ml Vial) 30 mg IVPUSH Q6H PRN PRN Reason: abdominal pain Morphine Sulfate (Morphine Sulfate 4 Mg/Ml Cartridge) 3 mg IVPUSH Q3H PRN; Protocol PRN Reason: Pain, Severe (Pain Scale 7-10) Last Admin: 07/24/22 10:22 Dose: 3 mg Documented By: KARYNA Morphine Sulfate (Morphine Sulfate 4 Mg/Ml Cartridge) 4 mg IVPUSH Q4H PRN; Protocol PRN Reason: Pain, Severe (Pain Scale 7-10) Ondansetron HCl (Ondansetron Hcl 4 Mg/2 Ml Vial) 4 mg IVPUSH Q8H PRN PRN Reason: nausea Last Admin: 07/24/22 10:22 Dose: 4 mg Documented By: KARYNA Oxycodone HCl (Oxycodone Hcl Immed Release 5 Mg Tablet) 10 mg PO Q6H PRN PRN Reason: Pain, Moderate (Pain Scale 4-6 Last Admin: 07/24/22 21:47 Dose: 10 mg Documented By: JENA Oxycodone HCl (Oxycodone Hcl Immed Release 5 Mg Tablet) 5 mg PO Q4H PRN PRN Reason: Pain, Moderate (Pain Scale 4-6 Sodium Chloride (0.9 % Sodium Chloride Flush 3 Ml Syringe) 3 ml IVFLUSH QSHIFT LADY Last Admin: 07/24/22 23:59 Dose: Not Given Documented By: MIRIAN Non-Admin Reason: IV Running Labs 07/24/22 03:13 07/24/22 03:13 Procedures Date of Service Date of Service: 07/25/22 Progress Note: A&P Assessment and plan (1) Acute appendicitis: Status: Acute Assessment and Plan: status post laparoscopic appendectomy clinically doing very well diet as tolerated likely DC home today given wound care instructions to see him in the office for postop visit she says she is comfortable with the plan Time Spent With Patient Time: Total time managing care of this patient today ____ minutes. Quality Stroke Does the patient have a stroke diagnosis?: No VTE Prior VTE?: No VTE Risk Level:: Medical - moderate - high VTE Device Contraindication: N/A - Device Ordered VTE Drug Contraindication: N/A - Med Ordered
[2022-07-25] MEDS: Heparin Sodium,Porcine 5,000 UNIT/ML VIAL 5000 UNIT SUBCUT (08:35)
[2022-07-25] MEDS: Lactated Ringers 1,000 ML 80 ML IVCONT (08:38)
[2022-07-25] MEDS: oxyCODONE HCl Immed Release 5 MG TABLET PO (08:45)
--- NOTE | 2022-07-25 10:32 | HO.POSTANES ---
Post Anesthesia Evaluation Post Anesthesia Evaluation Vital Signs: Vital Signs Temp Pulse Resp BP Pulse Ox O2 Del Method 07/25/22 08:00 98.0 F 66 18 115/66 99 Room Air 07/25/22 03:57 97.1 F 60 16 99/57 L 97 Room Air Anesthesia: General Endotracheal-GETA Mental Status: Awake Pain Control: Satisfactory Nausea/Vomiting: None Hydration: Adequate Anesthesia-Related Issues: No Anes. Related Issues
[2022-07-25 12:32] VITALS: TEMP 36.9
--- NOTE | 2022-07-25 13:34 | PM.DS ---
DS: Providers Provider Date of Service: 07/25/22 Date of admission: 07/24/22 05:35 Date of discharge: 07/25/22 Primary care physician: Saravanan Hernandez NP Admitting clinician: Nahum Chávez Attending physician on discharge: Nahum Chávez DS: Diagnosis Discharge Diagnosis (1) Acute appendicitis: Status: Acute DS: Summary Hospital Course Hospital Course: Admission HPI: Jennifer Black is a 42 year old female? who came to the emergency room last night because of her abdominal pain.? She said that this started yesterday morning.? She stated that started around the upper abdomen at that time but since then, has moved to the right lower quadrant.? The pain has been constant.? She denies any associated vomiting.? ? She denies any fever or chills.? She denies any similar episodes in the past. she denies other GI complaints. She has a history of? laparoscopic sleeve gastrectomy in 2020. ? She also had a laparoscopic cholecystectomy in 2015. Her CAT scan showed an appendicolith in the appendix along with some mild inflammatory changes consistent with acute appendicitis. HOSPITAL COURSE: The patient was admitted to the surgical service for further treatment of the acute appendicitis. It was recommended to proceed with laparoscopic appendectomy, possible open in light of the appendicitis with appendicolith. The patient underwent a laparoscopic appendectomy on 07/24/[address] Nahum Chávez without complication. The patient tolerated the procedure well. The patient had an uncomplicated recovery course. On POD #1, the patient felt improved with mild incision pain well controlled on po analgesics. She was tolerating a solid diet and ambulating without difficulty. Her vitals were stable and abdomen was benign with appropriate post op tenderness and clean incisions. She felt ready for discharge. The patient was discharged to home on 07/25/22 in stable condition. Pt to follow-up in the office in 2 weeks. Status at Discharge Functional status at discharge: independent ambulation Overall status at discharge: patient is progressing back to baseline Time Spent with Patient Time attestation: Total time managing care of this patient today ____ minutes. Discharge coordination time: Less than 30 minutes Quality: Safe Use of Opioids Does Pt have an Active Cancer Diagnosis on the Problem List?: No Quality: Stroke Does the patient have a stroke diagnosis?: No Physical Exam Vital Signs: Vital Signs: Last Vital Signs Temp 98.5 F 07/25/22 12:32 Pulse 66 07/25/22 08:00 Resp 18 07/25/22 08:00 BP 115/66 07/25/22 08:00 Pulse Ox 99 07/25/22 08:00 O2 Del Method 07/25/22 08:00 O2 Flow Rate 4 07/24/22 14:43 BMI result Body Mass Index 33.0 Const: General: comfortable, no acute distress and alert Orientation/consciousness: patient oriented x3 Resp: Effort & Inspection: normal respiratory effort GI: Inspection: No distended and Yes incision (dressings c/d/i) Palpation (GI): Soft to palpation, Tenderness to palpation present (GI) (mild, incisional), no guarding and not rigid Percussion: Yes normal to percussion Skin: General skin exam: no rashes or lesions noted Neuro: General: patient oriented x3 Extrem: General: Yes no clubbing, cyanosis or edema DS: Data Data Completed and Pending Completed studies during hospitalization [Text1]: Procedures Excision of Stomach, Percutaneous Endoscopic Approach, Vertical (01/26/21) Pending studies at discharge: Pending at discharge 07/24/22 14:17 Surgical [PTH] Routine Discharge Plan Discharge Anticipated Discharge Date/Time: 07/25/22 10:26 Patient Disposition: Home, Self-Care Discharge Diagnosis: s/p laparoscopic appendectomy Referrals: Nahum Chávez MD [Physician] - 2 Weeks Saravanan Hernandez NP [Primary Care Provider] - 1 Week Discharge Medications: New oxycodone 5 mg tablet 5 mg PO Q4H PRN (Reason: pain) Qty: 24 0RF Rx Instructions: Partial Fill upon patient request. Continued biotin 2,500 mcg Capsule 2,500 mcg PO DAILY No Action oxycodone 5 mg tablet 5 mg PO Q6H PRN (Reason: pain) Qty: 25 0RF Rx Instructions: Partial Fill upon patient request. Discharge Orders: Discharge Order (Routine); Ordered 07/25/22 Ordered By: Polly Roca Diet: Advance to usual diet Activity on Discharge: No heavy lifting Stand Alone Forms: Patient Portal Discharge page, Work/School Release Activity Restrictions/Additional Instructions: If the incision area is tender, you may apply an ice pack for short intervals (No more than 20 minutes on, followed by at least 20 minutes off). Do not apply heat. Do not use creams, lotions, or topical antibiotics unless instructed to do so by your surgeon. These can cause infection or allergic reaction. Ok to shower 24 hours after your surgery. Remove bandaids in 2 days and replace. You have steri strips (small white cloth strips) covering your incision- these will fall off ~1 week. Follow up in office with Dr. Chávez in 2 weeks. ([phone]) No heavy lifting (>10-20lbs) or strenuous activity! Call Your Doctor If: -Your temperature exceeds 101.5? F -You experience excessive pain or swelling -You have an unexpected reaction to medication -You have excessive bleeding -You experience continued vomiting/nausea -Your incision begins to separate -Your incision shows signs of infection such as increased redness, swelling, excessive pain, drainage (light blood or clear fluid is normal) or heat Care Plan Goals: Return to baseline health and gradual return to activity following recovery period. Health Concerns: Acute appendicitis Diabetes mellitus Plan of Treatment: s/p deyvi benavidez F/u in office Assessment: Doing well post op Discharge Date/Time: 07/25/22 14:31
--- NOTE | 2022-07-25 13:47 | MHC.CM.PN ---
PATIENT IS DC HOME - SELF CARE FAMILY TO TRANSPORT
== END 2022-07-25 14:31 | disposition home or self-care (01) | DRG 234 ==
LOC: HO.ED 05:35 → HO.EDOVER 05:42 → HO.S3 07:27
PROVIDERS: Admitting Provider Surgery; Emergency Provider Emergency Medicine; PCP Nurse Practitioner Family; Visit Provider Surgery
PROC: 0DTJ4ZZ Resection of Appendix, Percutaneous Endoscopic Approach (ICD-10-PCS; CPT 44970; principal; 2022-07-24 14:30)
DX: K35.80 Unspecified acute appendicitis (principal); E11.9 Type 2 diabetes mellitus without complications; Z20.822 Contact with and (suspected) exposure to COVID-19; Z23 Encounter for immunization; Z98.84 Bariatric surgery status; Z79.899 Other long term (current) drug therapy
CPT/HCPCS: 36415; 74176; 80048; 80076; 81003; 81025; 83690; 85025; 87635; 88304; 90686; 99285; C1758; J1100; J1170; J1643; J2250; J2270; J2405; J2543; J3010

== ENCOUNTER → 2022-08-06 13:03 | Outpatient (BNVA) | payer OTHER, SELFPAY | PROVIDERS: PCP Nurse Practitioner Family; Visit Provider Surgery | DX: Z13.89 Encounter for screening for other disorder (principal) | CPT/HCPCS: 99212 ==

== ENCOUNTER → 2022-10-08 13:57 | Outpatient (BNVA) | payer OTHER, SELFPAY | PROVIDERS: PCP Nurse Practitioner Family; Visit Provider Physician Assistant Surgical | DX: E66.9 Obesity, unspecified (principal); Z68.32 Body mass index [BMI] 32.0-32.9, adult | CPT/HCPCS: 99212 ==